=== PATIENT | female | born 1975 | race Caucasian/White ===

== ENCOUNTER 2016-05-02 18:37 | Emergency (ER) | payer OTHER, MEDICARE ==
[~2016-05-02] VITALS: Ht 152.4 cm; Wt 90.7 kg
[2016-05-02 18:37] VITALS: BP 154/109; PULSE 72; RESP 28; TEMP 97.9; O2SAT 99
--- NOTE | 2016-05-02 18:37 | NUR ---
BIB [facility] from [facility], Placed in room 03. Placed on surveillance system monitor, blood pressure machine and pulse oximeter. To gown for exam. Side rails up. Report given to ANAND Gracia.
[2016-05-02] MEDS ORDERED: ASPIRIN 325 MG TABLET PO ONE (19:15)
--- NOTE | 2016-05-02 19:20 | NUR ---
Pt BIB ambulance from [facility] with c/o 09/02 chestpain, non-radiating, with couhging. 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 A&Ox4, denies SOB, denies N/V/D. Skin intact. Will continue to monitor
--- NOTE | 2016-05-02 19:43 | NUR ---
at bedside examining pt
[2016-05-02 19:58] LABS: BASOPHILS # (AUTO) 0.1 K/uL (0.0-0.2); BASOPHILS % (AUTO) 0.5 % (0.0-2.0); EOSINOPHILS # (AUTO) 0.2 K/uL (0.0-0.4); HEMATOCRIT 39.2 % (36-48); HEMOGLOBIN 13.4 g/dL (12.0-16.0); LYMPHOCYTES # (AUTO) 2.4 K/uL (1.0-5.5); LYMPHOCYTES % (AUTO) 19.3 % (20.5-51.5); MEAN CORPUSCULAR HEMOGLOBIN 29 pg (27-31); MEAN CORPUSCULAR HGB CONC 34 % (32-36); MEAN CORPUSCULAR VOLUME 84 fL (79.0-98.0); MONOCYTES # (AUTO) 0.5 K/uL (0.0-1.0); MONOCYTES % (AUTO) 3.8 % (1.7-9.3); NEUTROPHILS # (AUTO) 9.3 K/uL (1.8-7.7); NEUTROPHILS % (AUTO) 74.4 % (40.0-70.0); PLATELET COUNT (AUTO) 343 K/uL (130-430); RED BLOOD CELL COUNT(AUTO) 4.67 MIL/uL (4.2-6.2); RED CELL DISTRIBUTION WIDTH 15.2 % (9.0-15.0); WHITE BLOOD COUNT (AUTO) 12.5 K/uL (4.8-10.8)
[2016-05-02 20:03] LABS: CALCIUM 8.5 mg/dL (8.4-11.0); CREATININE 0.36 mg/dL (0.55-1.30); POTASSIUM 3.7 mmol/L (3.5-5.1)
[2016-05-02 20:07] LABS: ALBUMIN 3.2 g/dL (3.4-4.8); TOTAL BILIRUBIN 0.3 mg/dL (0.0-1.0); TOTAL PROTEIN, SERUM 7.2 g/dL (6.4-8.3)
[2016-05-02] MEDS ORDERED: KETOROLAC TROMETHAMINE 30 MG VIAL IVP ONE (20:15)
[2016-05-02] MEDS ORDERED: HYDROcodone/ACETAMIN 5-325 MG TAB (NORCO/ VICODIN) PO ONE (20:15)
[2016-05-02 20:22] LABS: BILIRUBIN,URINE NEGATIVE (NEGATIVE); CLARITY/URINE CLEAR (CLEAR); COLOR,URINE YELLOW (YELLOW); GLUCOSE,URINE NEGATIVE (NEGATIVE); KETONES,URINE NEGATIVE (NEGATIVE); LEUKOCYTE ESTERASE ,URINE NEGATIVE (NEGATIVE); NITRITE, URINE NEGATIVE (NEGATIVE); PH,URINE 5.5 (5.0-8.0); PROTEIN URINE NEGATIVE (NEGATIVE); UROBILINOGEN,URINE 0.2 (0.2-1.0)
[2016-05-02 20:25] LABS: BLOOD, URINE TRACE (NEGATIVE)
[2016-05-02 20:30] LABS: BACTERIA,URINE FEW /HPF (None Seen); MUCUS,URINE 2+ /LPF (None Seen); RBC,URINE 0-3 /HPF (0-3); WBC,URINE 0-3 /HPF (0-3)
[2016-05-02] MEDS ORDERED: MULT-976 PO (21:07)
[2016-05-02] MEDS ORDERED: TRAZ-123 PO (21:07)
[2016-05-02] MEDS ORDERED: ALBU2.5V7 INH (21:07)
[2016-05-02] MEDS ORDERED: ASPI325T2 PO (21:07)
[2016-05-02] MEDS ORDERED: BACL10TA PO (21:07)
[2016-05-02] MEDS ORDERED: FAMO20TA8 PO (21:07)
[2016-05-02] MEDS ORDERED: MELA3TAB37 PO (21:07)
[2016-05-02] MEDS ORDERED: ACET325T53 PO (21:07)
[2016-05-02] MEDS ORDERED: METO25TA6 PO (21:07)
--- NOTE | 2016-05-02 21:07 | NUR ---
Medication reconciliation completed with information provided by facility record. Any prior medication reconciliation on file was reviewed and corrected.
--- NOTE | 2016-05-02 22:05 | NUR ---
Pt in bed, appeared comfortable, VSS. Will continue to monitor
--- NOTE | 2016-05-02 23:14 | NUR ---
Patient given written and verbal discharge instructions and verbalizes understanding. ER MD Emmanuel discussed with patient the results and treatment provided. Given copies of tests performed in ER. Patient in stable condition. ID arm band removed. IV catheter removed intact and dressing applied, no active bleeding. Rx of norco, motrin given. Patient educated on pain management and to follow up with PMD. Pain Scale 0/10 Opportunity for questions provided and answered. Pt transported back to facility by [facility] ambulance
[2016-05-02 23:16] VITALS: BP 103/73; PULSE 80; RESP 16; TEMP 98; O2SAT 98
== END 2016-05-02 23:16 | disposition home or self-care (01) ==
LOC: SED 18:37
DX: R07.89 Other chest pain (principal); K21.9 Gastro-esophageal reflux disease without esophagitis; R05 Cough; M79.602 Pain in left arm; Z88.1 Allergy status to other antibiotic agents
CPT/HCPCS: 36415; 71010; 80053; 81000; 81025; 82550; 83880; 84484; 85025; 96374; 99285; J1885; 93005

== ENCOUNTER 2017-11-20 19:31 | Emergency (ER) | payer OTHER, MEDICARE ==
[~2017-11-20] VITALS: Ht 167.6 cm; Wt 136.1 kg
[~2017-11-20 19:31] MED LIST: ACET325T53 PO; ALBU2.5V7 INH; ASPI-858 PO; BACL10TA PO; FAMO20TA8 PO; MELA3TAB PO; METO25TA6 PO; MULT-976 PO; TRAZ-123 PO
[2017-11-20 19:38] VITALS: BP_SYST 128
[2017-11-20] MEDS ORDERED: ACETAMINOPHEN 500 MG TABLET PO ONE (20:00)
[2017-11-20] MEDS ORDERED: DOCU-144 PO (20:29)
[2017-11-20] MEDS ORDERED: CRAN450C PO (20:30)
[2017-11-20] MEDS ORDERED: NA P133E41 RC (20:31)
[2017-11-20] MEDS ORDERED: IPRA3AMP9 INH (20:33)
[2017-11-20 22:20] VITALS: BP_SYST 121
== END 2017-11-20 22:20 | disposition home or self-care (01) ==
LOC: SED 19:31
DX: S00.03XA Contusion of scalp, initial encounter (principal); J44.9 Chronic obstructive pulmonary disease, unspecified; K21.9 Gastro-esophageal reflux disease without esophagitis; M62.50 Muscle wasting and atrophy, not elsewhere classified, unspecified site; Z79.899 Other long term (current) drug therapy; Z88.1 Allergy status to other antibiotic agents; W07.XXXA Fall from chair, initial encounter; Y93.89 Activity, other specified; Y92.89 Other specified places as the place of occurrence of the external cause; Y99.8 Other external cause status
CPT/HCPCS: 70450-TC; 99284

== ENCOUNTER 2018-12-18 23:50 | Inpatient (IN) | payer OTHER, BC ==
[~2018-12-18] VITALS: Ht 154.9 cm; Wt 121.6 kg
[2018-12-18 23:50] VITALS: BP_SYST 161
[~2018-12-18 23:50] MED LIST changes: -ALBU2.5V7 INH; +CRAN450C PO; +DOCU-144 PO; -MELA3TAB PO; +MELA3TAB64 PO; -TRAZ-123 PO; +TRAZ-250 PO
[2018-12-19] VITALS (24 sets, daily range): BP systolic 118–170
--- NOTE | 2018-12-19 | NUR ---
Patient to ER bed 2 to gown for evaluation. Side rails up.
[2018-12-19] MEDS ORDERED: NACL 0.9% 2,500 ML IV ONE (00:02)
--- NOTE | 2018-12-19 00:05 | NUR ---
ER at bedside examining patient.
--- NOTE | 2018-12-19 00:12 | NUR ---
xray at bedside
[2018-12-19] MEDS ORDERED: MEROPENEM 1 GM IVPB PREMIX 50 ML IV ONE (00:15)
[2018-12-19] MEDS ORDERED: VANCOMYCIN HCL 1,000 MG in NS 250 ML IV ONE (00:15)
[2018-12-19] MEDS ORDERED: POTA10TA15 PO (00:16)
[2018-12-19] MEDS ORDERED: LEVO500T89 PO (00:17)
[2018-12-19] MEDS ORDERED: LEVA1.2527 NEB (00:19)
--- NOTE | 2018-12-19 00:22 | NUR ---
Medication reconciliation completed with information provided by [facility]. Any prior medication reconciliation on file was reviewed and corrected.
--- NOTE | 2018-12-19 00:35 | NUR ---
Pt is QuadP BIBA from [facility] to ED C/O shortness of breath. Patient states that her symptoms started about 9:00 o'clock this evening, and feel and sound congested. No other injuries and or complaints noted. VSS, with mild tachycardia and O2 sat ranging from 90 - 95% NRM 15L No acute s/s of acute distress. Resting on gurney rails up
[2018-12-19] MEDS ORDERED: VANCOMYCIN HCL 1000 MG/VIAL IV ONE ×2 (00:38→04:58)
[2018-12-19 00:39] LABS: BASOPHILS # (AUTO) 0.1 K/uL (0.0-0.2); BASOPHILS % (AUTO) 0.6 % (0.0-2.0); EOSINOPHILS # (AUTO) 0.1 K/uL (0.0-0.4); EOSINOPHILS % (AUTO) 0.9 % (0.0-4.0); HEMOGLOBIN 13.9 g/dL (12.0-16.0); LYMPHOCYTES # (AUTO) 1.7 K/uL (1.0-5.5); LYMPHOCYTES % (AUTO) 10.8 % (20.5-51.5); MEAN CORPUSCULAR HEMOGLOBIN 28 pg (27-31); MEAN CORPUSCULAR HGB CONC 33 % (32-36); MEAN CORPUSCULAR VOLUME 83 fL (79.0-98.0); MONOCYTES # (AUTO) 0.7 K/uL (0.0-1.0); MONOCYTES % (AUTO) 4.7 % (1.7-9.3); NEUTROPHILS # (AUTO) 12.7 K/uL (1.8-7.7); PLATELET COUNT (AUTO) 395 K/uL (130-430); RED BLOOD CELL COUNT(AUTO) 5.04 MIL/uL (4.2-6.2); RED CELL DISTRIBUTION WIDTH 17.7 % (9.0-15.0); WHITE BLOOD COUNT (AUTO) 15.3 K/uL (4.8-10.8)
[2018-12-19 00:51] LABS: CALCIUM 8.6 mg/dL (8.4-11.0); CREATININE 0.51 mg/dL (0.55-1.30); POTASSIUM 3.9 mmol/L (3.5-5.1)
[2018-12-19 00:56] LABS: TOTAL BILIRUBIN 0.2 mg/dL (0.0-1.0)
[2018-12-19 01:18] LABS: BILIRUBIN,URINE NEGATIVE (NEGATIVE); BLOOD, URINE 1+ (NEGATIVE); CLARITY/URINE CLEAR (CLEAR); COLOR,URINE YELLOW (YELLOW); GLUCOSE,URINE NEGATIVE (NEGATIVE); KETONES,URINE NEGATIVE (NEGATIVE); LEUKOCYTE ESTERASE ,URINE NEGATIVE (NEGATIVE); NITRITE, URINE NEGATIVE (NEGATIVE); PH,URINE 6.5 (5.0-8.0); PROTEIN URINE NEGATIVE (NEGATIVE); UROBILINOGEN,URINE 0.2 (0.2-1.0)
[2018-12-19 01:22] LABS: BACTERIA,URINE FEW /HPF (None Seen); WBC,URINE 0-3 /HPF (0-3)
[2018-12-19] MEDS ORDERED: PIPERACILLIN/TAZO 3.375 GM in NS 50 ML IV SCH (01:45)
--- NOTE | 2018-12-19 02:15 | NUR ---
Patient will be admitted to care of Dr. Thompson. Admitted to ICU unit. Will go to room icu 4. Belongings list completed. Summary report printed. Report will be given at bedside.
--- NOTE | 2018-12-19 02:35 | NUR ---
Patient will be admitted to care of Dr. Thompson. Admitted to ICU unit. Will go to room 4. Belongings list completed. Summary report printed. Report will be given at bedside.
--- NOTE | 2018-12-19 02:35 | NUR ---
Transfer to ICU via ACLS protocol. Licensed nurse present. IV present no signs or symptoms of infiltration.
--- NOTE | 2018-12-19 02:40 | NUR ---
Admission Assessment Pt in bed AAO, but confused at times. Pt ST on the monitor. Non-rebreather mask on @15L. Pt saturating in the high 90s. No s/s of distress noted. Pt has IV infusing fluids, site C/D/I. No c/o of pain at this time. Bed locked in lowest position, call light in reach, and safety precautions in place. Will continue to monitor.
[2018-12-19] MEDS ORDERED: PIPERACILLIN/TAZOBACTAM 3.375 GM/VIAL (ZOSYN) IV ONE (02:52)
[2018-12-19] MEDS ORDERED: KCL 20 mEq in D5/0.45NS 1000mL 1,000 ML IV ONE (02:55)
[2018-12-19] MEDS ORDERED: VANCOMYCIN HCL 750 MG in NS 250 ML IV SCH (03:30)
[2018-12-19] MEDS: LevALBUTEROL HCL 1.25 MG/0.5 ML *CONC.* VIAL.NEB (XOPENEX CONC.) INH SCH ×4 (03:50→20:05)
--- NOTE | 2018-12-19 04:05 | NUR ---
Pt switched to Venti mask 50%.
[2018-12-19] MEDS: KCL 20 mEq in D5/0.45NS 1000mL 1,000 ML IV SCH ×2 (04:23→16:19)
[2018-12-19 05:20] LABS: BASOPHILS # (AUTO) 0.2 K/uL (0.0-0.2); BASOPHILS % (AUTO) 0.8 % (0.0-2.0); EOSINOPHILS # (AUTO) 0.2 K/uL (0.0-0.4); EOSINOPHILS % (AUTO) 0.9 % (0.0-4.0); HEMATOCRIT 40.2 % (36-48); HEMOGLOBIN 13.2 g/dL (12.0-16.0); LYMPHOCYTES # (AUTO) 2.2 K/uL (1.0-5.5); LYMPHOCYTES % (AUTO) 12.3 % (20.5-51.5); MEAN CORPUSCULAR HEMOGLOBIN 27 pg (27-31); MEAN CORPUSCULAR HGB CONC 33 % (32-36); MEAN CORPUSCULAR VOLUME 83 fL (79.0-98.0); MONOCYTES # (AUTO) 0.8 K/uL (0.0-1.0); MONOCYTES % (AUTO) 4.3 % (1.7-9.3); NEUTROPHILS # (AUTO) 14.9 K/uL (1.8-7.7); NEUTROPHILS % (AUTO) 81.7 % (40.0-70.0); PLATELET COUNT (AUTO) 340 K/uL (130-430); RED BLOOD CELL COUNT(AUTO) 4.84 MIL/uL (4.2-6.2); RED CELL DISTRIBUTION WIDTH 17.2 % (9.0-15.0); WHITE BLOOD COUNT (AUTO) 18.2 K/uL (4.8-10.8)
[2018-12-19 05:40] LABS: ALBUMIN 2.6 g/dL (3.4-4.8); CALCIUM 7.9 mg/dL (8.4-11.0); CREATININE 0.3 mg/dL (0.55-1.30); POTASSIUM 3.9 mmol/L (3.5-5.1); TOTAL BILIRUBIN 0.3 mg/dL (0.0-1.0)
--- NOTE | 2018-12-19 06:21 | NUR ---
Closing Note Pt in bed asleep. AAO but remains confused at times. SR/ST shown on monitor. Pt on Venti mask AT 50%. Pt has IV site in place IVF infusing. Site is C/D/I. Pt being turned Q2H. Bed locked in lowest position, call light in reach, and safety precautions in place. Will endorse to oncoming RN.
--- NOTE | 2018-12-19 06:40 | NUR ---
DR PARSONS EXCHANGE NOTIFIED OF CONSULT.TALKED TO OMA
[2018-12-19] MEDS: methylPREDNISolone SOD SUCC/PF 62.5 MG/ML VIAL IVP SCH ×4 (06:59→23:32)
[2018-12-19] MEDS: PIPERACILLIN/TAZO 3.375 GM in NS 50 ML IV SCH ×4 (06:59→23:33)
--- NOTE | 2018-12-19 07:19 | NUR ---
Endorsement Report given to oncoming RN at bedside via SBAR approach.
--- NOTE | 2018-12-19 07:23 | NUR ---
Shift Report Received shift report from night RN
--- NOTE | 2018-12-19 07:30 | NUR ---
AM Assessment Pt on Venturi Mask running at 50%. Saturation at 100%. Sinus Tach. Pt verbalized alert to person, place, time. Refused to visitation from father. Bed locked and in lowest position. LFA 20 gauge no longer patent.
--- NOTE | 2018-12-19 08:20 | NUR ---
Dr Thompson called and ordered PICC line for Pt.
[2018-12-19] MEDS ORDERED: FLU VACC QS2019-20 36MOS UP/PF 60 MCG/0.5 ML SYRINGE I.M. PRN (09:00)
--- NOTE | 2018-12-19 09:00 | NUR ---
ZAVALETA CATH: #16 FR Zavaleta catheter with 10 cc bulb inserted with use of sterile technique. Bulb inflated with 10 cc sterile water. Immediate return clear urine noted. Bedside drainage bag placed below level of bladder. Pt tolerated procedure well.
--- NOTE | 2018-12-19 09:20 | NUR ---
Performed perineal care. Linens changed. PT turned on right side will pillows.
--- NOTE | 2018-12-19 10:00 | NUR ---
PICC line Authorization given over telephone by Jhonny (Father). Janett MICHEL second nurse verified.
--- NOTE | 2018-12-19 12:30 | NUR ---
PICC line RN at bed performing procedure.
[2018-12-19] MEDS ORDERED: ENOXAPARIN SODIUM 40 MG/0.4 ML SYRINGE SUBCUT ONE (13:45)
--- NOTE | 2018-12-19 15:00 | NUR ---
Called father to get telephone consent for IV contrast use. Addendum: 12/19/18 at 1630 by Ny Cheema RN Left message to call facility back.
[2018-12-19] MEDS: VANCOMYCIN HCL 1,500 MG in NS 250 ML IV SCH (16:19)
--- NOTE | 2018-12-19 16:36 | NUR ---
Received telephone consent with second nurse present from father Jhonny to use IV contrast. Also informed Jhonny that patient is requesting eyeglasses lemon picker from [facility].
--- NOTE | 2018-12-19 16:52 | NUR ---
Informed radiology that consent form for IV contrast completed.
--- NOTE | 2018-12-19 17:50 | NUR ---
Patient off unit transferred to radiology for CT scan IV contrast with tele monitor and portable 02 2 liters via NC.
[2018-12-19] MEDS ORDERED: IOHEXOL 100 ML IV ONE (17:52)
--- NOTE | 2018-12-19 18:20 | NUR ---
Patient returned from radiology, tolerated procedure well.
--- NOTE | 2018-12-19 19:12 | NUR ---
Endorsed patient and report to oncoming nurse. In no acute distress. Awake and alert watching TV.
--- NOTE | 2018-12-19 19:30 | NUR ---
PM ASSESSMENT REPORT RECEIVED FROM CHINO MICHEL. PT RECEIVED IN BED WITH EYES OPEN, AAOX3, RESPONDING TO VERBAL STIMULATION. VSS, NO S/S OF ACUTE DISTRESS NOTED. PT ON 2L NC. SR ON MONITOR. MOUNA PICC IN PLACE INFUSING D5 1/2 NS + 20 MEQ KCL @ 75 CC/HR. ZAVALETA CATH IN PLACE DRAINING YELLOW URINE TO GRAVITY. PT DENIES ANY PAIN OR DISCOMFORT AT THIS TIME. HOB ELEVATED, BED IN LOWEST POSITION, CALL LIGHT IN REACH. WILL CONTINUE TO MONITOR PT.
[2018-12-19] MEDS: FAMOTIDINE PF 20 MG/2 ML VIAL IVP SCH (20:02)
[2018-12-20] VITALS (24 sets, daily range): BP systolic 110–189
--- NOTE | 2018-12-20 | NUR ---
RN ROUNDS PT RESTING COMFORTABLY IN BED WITH EYES CLOSED. BREATHING IS EVEN AND UNLABORED ON 2L NC. VSS, NO S/S OF ACUTE DISTRESS NOTED. WILL CONTINUE TO MONITOR PT.
[2018-12-20] MEDS: LevALBUTEROL HCL 1.25 MG/0.5 ML *CONC.* VIAL.NEB (XOPENEX CONC.) INH SCH ×4 (01:10→19:45)
[2018-12-20] MEDS: VANCOMYCIN HCL 1,500 MG in NS 250 ML IV SCH (03:41)
[2018-12-20] MEDS: methylPREDNISolone SOD SUCC/PF 62.5 MG/ML VIAL IVP SCH ×4 (05:34→23:23)
[2018-12-20] MEDS: PIPERACILLIN/TAZO 3.375 GM in NS 50 ML IV SCH ×4 (05:34→23:23)
[2018-12-20 06:47] LABS: BASOPHILS % (AUTO) 0.1 % (0.0-2.0); HEMATOCRIT 37.6 % (36-48); HEMOGLOBIN 12.3 g/dL (12.0-16.0); LYMPHOCYTES # (AUTO) 1.1 K/uL (1.0-5.5); LYMPHOCYTES % (AUTO) 9.5 % (20.5-51.5); MEAN CORPUSCULAR HEMOGLOBIN 27 pg (27-31); MEAN CORPUSCULAR HGB CONC 33 % (32-36); MEAN CORPUSCULAR VOLUME 82 fL (79.0-98.0); MONOCYTES # (AUTO) 0.3 K/uL (0.0-1.0); MONOCYTES % (AUTO) 2.6 % (1.7-9.3); NEUTROPHILS # (AUTO) 10.5 K/uL (1.8-7.7); NEUTROPHILS % (AUTO) 87.8 % (40.0-70.0); PLATELET COUNT (AUTO) 329 K/uL (130-430); RED BLOOD CELL COUNT(AUTO) 4.56 MIL/uL (4.2-6.2)
[2018-12-20 06:52] LABS: CALCIUM 7.8 mg/dL (8.4-11.0); CREATININE 0.34 mg/dL (0.55-1.30)
--- NOTE | 2018-12-20 07:15 | NUR ---
Received patient and report from NOC shift. In no acute distress.
[2018-12-20 07:24] LABS: PROTHROMBIN TIME 10.4 SECS (9.5-12.5)
--- NOTE | 2018-12-20 07:30 | NUR ---
ENDORSEMENT BEDSIDE REPORT GIVEN TO AM RN USING SBAR APPROACH.
[2018-12-20] MEDS: ENOXAPARIN SODIUM 40 MG/0.4 ML SYRINGE SUBCUT SCH (08:19)
[2018-12-20] MEDS: FAMOTIDINE PF 20 MG/2 ML VIAL IVP SCH ×2 (08:19→21:58)
--- NOTE | 2018-12-20 11:00 | NUR ---
MD Car at bedside.
--- NOTE | 2018-12-20 11:30 | NUR ---
Performed CHG bath and changed gown. Performed oral care.
--- NOTE | 2018-12-20 12:22 | NUR ---
Nutrition Update Alan Scale 13 noted. Pt admitted for UTI, pneumonia. Diet: NPO BMI: 43.5 kg/m2 RD to follow per nutrition care standards.
[2018-12-20] MEDS: AZITHROMYCIN 500 MG in NS 250 ML IV SCH (14:26)
[2018-12-20] MEDS: KCL 20 mEq in D5/0.45NS 1000mL 1,000 ML IV SCH (14:32)
--- NOTE | 2018-12-20 16:00 | NUR ---
Speech therapist at bedside.
--- NOTE | 2018-12-20 16:02 | NUR ---
Dietitian Recommendations * Recommend continuing NPO order * Advance diet as per ST wyatt brizuela recommendations LP, RD Please refer to Nutrition Assessment for details. Addendum: 12/20/18 at [address] Amended: Links added.
[2018-12-20] MEDS: FLUCONAZOLE 100 mg/ NS 50 ML IV SCH (16:37)
--- NOTE | 2018-12-20 16:45 | NUR ---
S.T. SWALLOW EVAL SWALLOW EVAL COMPLETED. PT PRESENTS W/ GENERALLY FUNCTIONAL OROPHARYNGEAL SWALLOW W/ NO S/S OF ASPIRATION. REC: MECH SOFT CHOPPED DIET. THIN LIQUIDS OK. NURSING TO MONITOR DURING MEALS. NURSE EDIE NOTIFIED. G8996 CI G8997 CI G8998 CI NOMS LEVEL 6
--- NOTE | 2018-12-20 19:27 | NUR ---
Endorsed patient and report to NOC shift nurse. In no acute distress.
--- NOTE | 2018-12-20 20:13 | NUR ---
URINE COLLECTED & SENT TO LAB .
--- NOTE | 2018-12-20 20:14 | NUR ---
PATIENT IS AWAKE ALERT VERBALLY RESPONSIVE HOB IS ELEVATED ON NASAL CANNULA 2 LITER PER MINUTE SKIN DRY WARM BP 135 / 82 HR 86 BPM CHEST MOVEMENT SYMMETRICAL .
--- NOTE | 2018-12-20 22:00 | NUR ---
ZAVALETA CATHETER FOR URINE PATENT Free Flow of yellow clear urine noted to BSDB , patient awake alert .
--- NOTE | 2018-12-20 22:13 | NUR ---
Reposition & Turning off loading with pillows comfort measures implemented no activity intolerance noted Respirations Regular also unlabored .
[2018-12-21] VITALS (17 sets, daily range): BP systolic 123–175
[2018-12-21] MEDS: LevALBUTEROL HCL 1.25 MG/0.5 ML *CONC.* VIAL.NEB (XOPENEX CONC.) INH SCH ×4 (00:55→19:40)
--- NOTE | 2018-12-21 02:37 | NUR ---
STOOL NOTED Bed Bath given debbie area kept clean patient awake alert position change on schedule tolerating .
--- NOTE | 2018-12-21 05:02 | NUR ---
SPUTUM COLLECTION OBTAINED FROM NASAL SUCTION / ASPIRATION AND SENT TO LAB .
[2018-12-21] MEDS: KCL 20 mEq in D5/0.45NS 1000mL 1,000 ML IV SCH ×2 (05:23→13:16)
[2018-12-21] MEDS: PIPERACILLIN/TAZO 3.375 GM in NS 50 ML IV SCH ×3 (05:23→18:17)
[2018-12-21] MEDS: methylPREDNISolone SOD SUCC/PF 62.5 MG/ML VIAL IVP SCH (05:23)
[2018-12-21 07:10] LABS: BASOPHILS % (AUTO) 0.1 % (0.0-2.0); HEMATOCRIT 37.1 % (36-48); HEMOGLOBIN 12.1 g/dL (12.0-16.0); LYMPHOCYTES # (AUTO) 0.8 K/uL (1.0-5.5); LYMPHOCYTES % (AUTO) 6.5 % (20.5-51.5); MEAN CORPUSCULAR HEMOGLOBIN 27 pg (27-31); MEAN CORPUSCULAR HGB CONC 33 % (32-36); MEAN CORPUSCULAR VOLUME 83 fL (79.0-98.0); MONOCYTES # (AUTO) 0.5 K/uL (0.0-1.0); MONOCYTES % (AUTO) 4.2 % (1.7-9.3); NEUTROPHILS # (AUTO) 10.9 K/uL (1.8-7.7); NEUTROPHILS % (AUTO) 89.2 % (40.0-70.0); PLATELET COUNT (AUTO) 351 K/uL (130-430); RED BLOOD CELL COUNT(AUTO) 4.48 MIL/uL (4.2-6.2); RED CELL DISTRIBUTION WIDTH 17.5 % (9.0-15.0); WHITE BLOOD COUNT (AUTO) 12.2 K/uL (4.8-10.8)
[2018-12-21 07:24] LABS: CALCIUM 8.3 mg/dL (8.4-11.0); CREATININE 0.58 mg/dL (0.55-1.30); POTASSIUM 3.1 mmol/L (3.5-5.1)
--- NOTE | 2018-12-21 07:30 | NUR ---
PT RECEIVED IN BED WITH EYES OPEN, A/OX3. VSS, NO S/S OF ACUTE DISTRESS NOTED. ON ROOM AIR, SR ON MONITOR. RAC 20G TO SL. LUNG SOUNDS DIMINISHED ACROSS THE LUNG CHIN. PATIENT IS FLACCID ON ALL EXTREMITIES, PT DENIES ANY PAIN OR DISCOMFORT AT THIS TIME. CALL LIGHT IN PLACE, BED LOCKED AT IN LOWEST POSITION WITH BED ALARM ON. WILL CONTINUE TO MONITOR PT.
[2018-12-21] MEDS: AZITHROMYCIN 500 MG in NS 250 ML IV SCH (08:40)
[2018-12-21] MEDS: FAMOTIDINE PF 20 MG/2 ML VIAL IVP SCH ×2 (08:40→20:05)
[2018-12-21] MEDS: ENOXAPARIN SODIUM 40 MG/0.4 ML SYRINGE SUBCUT SCH (08:41)
--- NOTE | 2018-12-21 09:40 | NUR ---
FAMILY AT BEDSIDE. POC IS DISCUSSED.
--- NOTE | 2018-12-21 09:50 | NUR ---
Wound Evaluation: Late note for 12/21/18 at 0950 secondary to patient care. Wound Consult ordered for Low Alan Score. Patient evaluated for a low Alan score of 18. Patient was awake, alert, oriented x 2 and received in a Cottonwood Bed with an IsoFlex MARIA L mattress, with low air-loss therapy initiated. Patient needs to be turned in bed. Skin is intact. Recommend reposition patient side to side only every 2 hours with pillow support. Elevate, off-load and float bilateral heels with pillows. Offload pressure areas with pillows for pressure re-distribution. Perform skin care and monitor skin integrity Q shift. Use moisture barrier cream on moisture susceptible areas QID and PRN for soiling. Place patient on a low air-loss mattress. Skin assessment: 1. Sacra area: Scar tissue from a wound of prior unknown etiology, present on admission. 2. Buttocks: Scar tissue from a wound of prior unknown etiology, present on admission. Recommend: Cleanse involved areas with mild soap and water. Pat dry. Apply moisture barrier to involved areas. Perform site care qid, and prn for soiling. Reposition patient side to side only every 2 hours with pillow support.
[2018-12-21] MEDS ORDERED: POTASSIUM CHLORIDE 40 MEQ in 0.45% NS 250 ML IV ONE (10:30)
[2018-12-21] MEDS ORDERED: POTASSIUM CHLORIDE 40 MEQ in NS 250 ML IV ONE (10:55)
--- NOTE | 2018-12-21 11:20 | NUR ---
PATIENT IS RESTING, NO SIGNS OF DISTRESS NOTED.
[2018-12-21] MEDS: FLUCONAZOLE 100 mg/ NS 50 ML IV SCH (12:05)
--- NOTE | 2018-12-21 13:08 | NUR ---
Night Clerk Auditor: meet with pt. in ICU. HANDLE TURNER met with pt. in ICU. She was having a hard time communication with and responding to HANDLE TURNER's questions. She was willing to participate in this interview, and answered to the best of her ability. When asked pt. stated she had lived in [facility] all her life.HANDLE TURNER asked pt. where she lived prior to [facility]. Pt. stated she did not know. She also confirmed her father was her emergency contact, but did not remember the last time she saw or spoke to him. HANDLE TURNER asked pt. if she had a PCP. Pt stated she did not know of one. HANDLE TURNER asked pt. if it was ok if she contacted her father to gather more info. Pt. stated it was ok. HANDLE TURNER asked pt. if she knew what she was at the hospital. Pt. stated she did not know. HANDLE TURNER told her at any time, she can ask her Rn., today it was brodie Gregg. her health care, POC and prognosis. HANDLE TURNER asked pt. if she wanted HANDLE TURNER to help her write down some questions for Dr. Thompson. Pt. stated no, it was ok. HANDLE TURNER shared with pt. what the census stated, pt. had an UTI and pneumonia. HANDLE TURNER asked pt. if she has ever felt depressed. Pt. stated she had not. HANDLE TURNER asked pt. she has ever felt like hurting herself. Pt. denied ever having these feelings. HANDLE TURNER asked pt. if she had any questions. Pt. stated she did not. HANDLE TURNER gave pt. her card and told pt. she can have the Rn. call if pt. had any questions. HANDLE TURNER will remain available as needed. HANDLE TURNER called emergency contact, pts.' dad, Jhonnydarrell PhillipsLange who stated pt. has a hard time talking due to her disease, ALS. She was Dx. her senior year in high school. Father stated pt. has lived in [facility] since about 2009. he lives in [place] and had just visited his daughter about an hour ago. He added pt. is very forgetful. HANDLE TURNER thanked him for all his help. HANDLE TURNER will remain available as needed.
--- NOTE | 2018-12-21 15:20 | NUR ---
Patient awake and resting in bed, denies any SOB or pain. No signs or symptoms of acute distress noted. Bed locked in lowest position, bed alarm on, and call light within reach. Fall and safety precautions in place.
--- NOTE | 2018-12-21 15:53 | NUR ---
Dr. Thompson at bedside examining patient. New orders received.
--- NOTE | 2018-12-21 15:53 | NUR ---
Telemetry Status Per Dr. Thompson, patient is stable to transfer to telemetry unit. Patient will be monitored in ICU under telemetry status until hospital bed is available.
--- NOTE | 2018-12-21 17:00 | NUR ---
PATIENT IS TRANSFERRED TO TELE FLOOR. SR ON MONITOR. V/S STABLE.
--- NOTE | 2018-12-21 18:30 | NUR ---
PATIENT IS FED DINNER WITH RN'S SUPERVISION.
--- NOTE | 2018-12-21 19:30 | NUR ---
PM ASSESSMENT REPORT RECEIVED FROM AM RN. PT RECEIVED IN BED WITH EYES OPEN, AAOX2-3 AND ABLE TO VERBALIZE NEEDS. VSS, NO S/S OF ACUTE DISTRESS NOTED. PT ON RA. SR ON MONITOR. MOUNA PICC IN PLACE INFUSING D5 1/2 NS + 20 MEQ KCL @ 75 CC/HR. ZAVALETA CATH IN PLACE DRAINING YELLOW URINE TO GRAVITY. PT DENIES ANY PAIN OR DISCOMFORT AT THIS TIME. HOB ELEVATED, BED IN LOWEST POSITION, CALL LIGHT IN REACH. WILL CONTINUE TO MONITOR PT.
--- NOTE | 2018-12-22 | NUR ---
RN ROUNDS PT RESTING COMFORTABLY IN BED WITH EYES OPEN. PT DENIES ANY PAIN OR DISCOMFORT AT THIS TIME. NO NEEDS VERBALIZED. VSS, NO S/S OF ACUTE DISTRESS NOTED. WILL CONTINUE TO MONITOR PT.
[2018-12-22] MEDS: PIPERACILLIN/TAZO 3.375 GM in NS 50 ML IV SCH ×3 (00:04→10:59)
[2018-12-22] MEDS: LevALBUTEROL HCL 1.25 MG/0.5 ML *CONC.* VIAL.NEB (XOPENEX CONC.) INH SCH ×5 (01:15→19:56)
[2018-12-22] MEDS: KCL 20 mEq in D5/0.45NS 1000mL 1,000 ML IV SCH (03:29)
--- NOTE | 2018-12-22 04:00 | NUR ---
RN ROUNDS PT CONTINUES TO REST COMFORTABLY IN BED WITH EYES OPEN. PT DENIES ANY PAIN OR DISCOMFORT AT THIS TIME. BREATHING IS EVEN AND UNLABORED ON RA. WILL CONTINUE TO MONITOR PT.
[2018-12-22 07:01] LABS: BASOPHILS % (AUTO) 0.1 % (0.0-2.0); HEMATOCRIT 35.4 % (36-48); HEMOGLOBIN 11.9 g/dL (12.0-16.0); LYMPHOCYTES % (AUTO) 20.4 % (20.5-51.5); MEAN CORPUSCULAR HEMOGLOBIN 28 pg (27-31); MEAN CORPUSCULAR HGB CONC 34 % (32-36); MEAN CORPUSCULAR VOLUME 83 fL (79.0-98.0); MONOCYTES # (AUTO) 1.1 K/uL (0.0-1.0); MONOCYTES % (AUTO) 11.2 % (1.7-9.3); NEUTROPHILS # (AUTO) 6.8 K/uL (1.8-7.7); NEUTROPHILS % (AUTO) 68.3 % (40.0-70.0); PLATELET COUNT (AUTO) 325 K/uL (130-430); RED BLOOD CELL COUNT(AUTO) 4.28 MIL/uL (4.2-6.2); RED CELL DISTRIBUTION WIDTH 17.5 % (9.0-15.0)
[2018-12-22 07:07] LABS: ALBUMIN 2.5 g/dL (3.4-4.8); CALCIUM 8.1 mg/dL (8.4-11.0); CREATININE 0.42 mg/dL (0.55-1.30); POTASSIUM 3.3 mmol/L (3.5-5.1); TOTAL BILIRUBIN 0.3 mg/dL (0.0-1.0)
--- NOTE | 2018-12-22 07:20 | NUR ---
ENDORSEMENT BEDSIDE REPORT GIVEN TO AM RN USING SBAR APPROACH. NO S/S OF ACUTE DISTRESS NOTED. ALL PT NEEDS MET.
--- NOTE | 2018-12-22 07:45 | NUR ---
AM ROUNDS: Awake, able to make needs know. Noted with shallow non productive cough, unable to expectorate phlegm. On room air, denies shortness of breath with rhonchi/crackles on all lobes. Right PICC line with two ports, both flushes well and with blood return. IVF of D5/12NS + KCL 20meq at 50 cc/hr. Park cath with yellow urine output, no sediments noted. Head of the bed elevated at 35 degrees, call ligh within reach.
[2018-12-22 07:57] VITALS: BP_SYST 150
[2018-12-22 08:39] VITALS: BP_SYST 150
[2018-12-22] MEDS: FAMOTIDINE PF 20 MG/2 ML VIAL IVP SCH ×2 (08:57→21:53)
[2018-12-22] MEDS: AZITHROMYCIN 500 MG in NS 250 ML IV SCH (08:58)
[2018-12-22] MEDS: ENOXAPARIN SODIUM 40 MG/0.4 ML SYRINGE SUBCUT SCH (08:59)
--- NOTE | 2018-12-22 11:01 | NUR ---
Rounds: Patient is asleep. No distress noted.
[2018-12-22 11:42] VITALS: BP_SYST 142
[2018-12-22] MEDS ORDERED: POTASSIUM CHLORIDE 40 MEQ in NS 250 ML IV ONE (12:00)
[2018-12-22] MEDS: FLUCONAZOLE 100 mg/ NS 50 ML IV SCH (12:11)
--- NOTE | 2018-12-22 14:00 | NUR ---
Rounds: Patient is asleep. No signs of respiratory distress noted.
[2018-12-22] MEDS: ACETYLCYSTEINE 10% 4 ML VIAL (RT) INH SCH ×2 (15:30→19:57)
[2018-12-22 15:38] VITALS: BP_SYST 143
--- NOTE | 2018-12-22 17:16 | NUR ---
Nutrition F/U Admitting Diagnosis UTI, pneumonia RD reviewed pts current EMR including diet Hx, physicians notes, nursing notes, pertinent labs/meds, procedures, care trends, and care activity. Medical History Comment: PMH: ALS, bedbound, functional quadriplegia, GERD, dysphagia, obesity, obesity, HTN, COPD per physician notes Since admission, Hypoxia, respiratory failure, and acute/complex pneumonia per physicians notes. Subjective Information Pt was seen resting in bed during time of visit. Pt reported no N/V and last BM about a week ago. Bed scale wt 238.8#. Per speech therapist note on 12/20, recommend mechanical soft chopped diet. RN reported pt is coughing a lot, it is intervening with PO intake. Average PO intake 71% x6 meals. Alan scale improved to 16, posterior sacrum scar noted per EMR on 12/21. Current Diet Order/Nutrition Support: Mechanical soft, finely chopped diet x2 days NEW Pertinent Medications Pepcid, piperacillin/tazobactum Pertinent Labs BG 217 H, WBC 10 WNL (improved) NEW: K 3.3 L, BUN 25 H, Alb 2.5 L Estimated Energy Expenditure (kcals/day) 7627-7852 kcal/day (30-35 kcal/kg Adj IBW for acute state) Estimated Protein Required (g/day) *ongoing 66-79 gm/day (1-1.2 gm/kg Adj IBW for acute state) Estimated Fluid Required (l/day) 3.7 L/day (30 ml/kg CBW for maintenance) Problem/Etiology/Signs/Symptoms Inadequate nutritional intakes related to possible difficulty swallowing associated w/ advancing Dz as evidenced by Hx of ALS, NPO status, and pending swallow evaluation. (*ongoing) Expected Outcomes/Goals - Monitor advancement of diet, appetite, and PO intakes w/ goal of pt meeting at least 85% of estimated nutritional needs, labs trending WNL, normal GI function, and skin integrity/wt maintenance Dietitian Recommendations * Recommend continuing mechanical soft, finely chopped diet. * Encourage PO intake Follow Up Moderate Risk: F/U in 3-5 days Signed: 12/22/18 at 1717 by Angelica PALOMO <Co-Signature Required> Co-Signed: 12/22/18 at [address]
--- NOTE | 2018-12-22 17:19 | NUR ---
Dietitian Recommendations * Recommend continuing mechanical soft, finely chopped diet. * Encourage PO intake LP, RD Please refer to Nutrition F/U for details. Signed: 12/22/18 at 1719 by Angelica PALOMO <Co-Signature Required> Co-Signed: 12/22/18 at [address]
--- NOTE | 2018-12-22 18:07 | NUR ---
End of shift: Family requested patient to be back on oxygen at 2 li/min. O2 sat is 99%. Needs attended.No change in assessment.
--- NOTE | 2018-12-22 19:30 | NUR ---
OPENING NOTES RECEIVED REPORT. PATIENT SLEEPING AT THIS TIME. NO SIGNS OF DISTRESS NOTED. BREATHING EVEN AND UNLABORED ON 2 L NC. PICC LINE IN PLACE INFUSING FLUIDS. RHONCHI HEARD. WILL SUCTION PATIENT. ZAVALETA CATHETER IN PLACE. NO NEEDS AT THIS TIME. CALL LIGHT WITH THE PATIENT. SAFETY PRECAUTIONS IN PLACE.
[2018-12-22 20:00] VITALS: BP_SYST 124
--- NOTE | 2018-12-22 20:40 | NUR ---
SUCTION PATIENT WAS SUCTIONED BY RT. SPUTUM CULTURE COLLECTED. PATIENT TOLERATED WELL.
[2018-12-22] MEDS: DOXYCYCLINE HYCLATE 100 MG CAPSULE PO SCH (21:52)
--- NOTE | 2018-12-22 22:00 | NUR ---
MEDICATIONS GIVEN. EDUCATED THE ACTION AND SIDE EFFECTS OF MEDICATIONS. PATIENT VERBALIZED UNDERSTANDING AND TOLERATED WELL. NO SIGNS OF ALLERGIC REACTION NOTED. NO OTHER NEEDS. CALL LIGHT WITH THE PATIENT. SAFETY PRECAUTIONS IN PLACE.
--- NOTE | 2018-12-23 | NUR ---
RESTING PATIENT RESTING IN BED. WATCHING TV. NO SIGNS OF DISTRESS NOTED. BREATHING EVEN AND UNLABORED. PROVIDED PATIENT WITH WATER. CALL LIGHT WITH THE PATIENT. SAFETY PRECAUTIONS IN PLACE.
[2018-12-23] MEDS: LevALBUTEROL HCL 1.25 MG/0.5 ML *CONC.* VIAL.NEB (XOPENEX CONC.) INH SCH ×4 (00:59→19:41)
[2018-12-23 01:28] VITALS: BP_SYST 142
--- NOTE | 2018-12-23 02:10 | NUR ---
SLEEPING NO SIGNS OF DISTRESS NOTED. BREATHING EVEN AND UNLABORED. IVF INFUSING WELL. CALL LIGHT WITH THE PATIENT. SAFETY PRECAUTIONS IN PLACE.
--- NOTE | 2018-12-23 04:30 | NUR ---
SLEEPING NO SIGNS OF DISTRESS NOTED. BREATHING EVEN AND UNLABORED. IVF INFUSING WELL. CALL LIGHT WITH THE PATIENT. SAFETY PRECAUTIONS IN PLACE.
[2018-12-23] MEDS: KCL 20 mEq in D5/0.45NS 1000mL 1,000 ML IV SCH (05:16)
--- NOTE | 2018-12-23 06:23 | NUR ---
CLOSING NOTES PATIENT RESTING COMFORTABLY IN BED. NO SIGNS OF DISTRESS NOTED. BREATHING EVEN AND UNLABORED. PICC LINE PATENT AND INTACT, INFUSING FLUIDS. ZAVALETA CATHETER IN PLACE. ALL NEEDS MET THROUGHOUT THE SHIFT. CALL LIGHT WITH THE PATIENT. SAFETY PRECAUTIONS IN PLACE. WILL ENDORSE CARE TO DAY SHIFT RN.
[2018-12-23] MEDS: ACETYLCYSTEINE 10% 4 ML VIAL (RT) INH SCH ×3 (07:32→19:41)
--- NOTE | 2018-12-23 07:45 | NUR ---
Opening note patient resting in bed, a/x3-4, periods of forgetfulness, assessment complete, patient denies pain, is hungry, PICC line to right arm is patent and infusing well, IV to left upper arm patent, educated the patient optoelectronics engineer light system and to call for any assistance and educated on plan of care, she verbalized understanding, bed in lowest position, three side rails up, bed alarm on, call light within reach, fall and aspiration precautions in place.
[2018-12-23 08:33] VITALS: BP_SYST 136
[2018-12-23] MEDS: AZITHROMYCIN 500 MG in NS 250 ML IV SCH (09:23)
[2018-12-23] MEDS: FAMOTIDINE PF 20 MG/2 ML VIAL IVP SCH ×2 (09:23→20:43)
[2018-12-23] MEDS: ENOXAPARIN SODIUM 40 MG/0.4 ML SYRINGE SUBCUT SCH (09:24)
[2018-12-23] MEDS: DOXYCYCLINE HYCLATE 100 MG CAPSULE PO SCH ×2 (09:25→20:43)
--- NOTE | 2018-12-23 09:25 | NUR ---
Medications patient resting in bed, awake, denies pain, educated on medications uses and potential side effects, she verbalized understanding, tolerated PO medication well, PICC line is patent and infusing well, no other needs at this time, continuing to monitor, bed in lowest position, three side rails up, bed alarm on, call light placed within reach, fall and aspiration precautions in place.
--- NOTE | 2018-12-23 10:57 | NUR ---
RN rounds patient resting in bed, awake, denies pain, patient asking to go home, informed her that the doctor needs to come see her first, she verbalizes understanding, discontinued IVF per orders, no other needs at this time, continuing to monitor patient, bed in lowest position, three side rails up, call light within reach, fall and aspiration precautions in place.
[2018-12-23] MEDS: FLUCONAZOLE 100 mg/ NS 50 ML IV SCH (12:11)
--- NOTE | 2018-12-23 12:11 | NUR ---
RN rounds/Medications patient resting in bed, awake, denies pain, educated on IV Antibiotic uses and potential side effects, she verbalized understanding, PICC line is patent and infusing well, no other needs at this time, continuing to monitor, bed in lowest position, three side rails up, bed alarm on, call light placed within reach, fall and aspiration precautions in place.
[2018-12-23 12:35] VITALS: BP_SYST 155
--- NOTE | 2018-12-23 13:46 | NUR ---
PHYSICAL THERAPY CO-SIGN The Physical Therapy Progress Notes documented by Record Maker have been reviewed. Reviewed/Co-Signed by: Anil Geronimo PT Documentation Done by: ZARI GRUBBS PTA Addendum: 12/23/18 at 1348 by Anil Geronimo PT Amended: Links added.
--- NOTE | 2018-12-23 13:46 | NUR ---
PHYSICAL THERAPY CO-SIGN The Physical Therapy Progress Notes documented by Anode Crew Supervisor have been reviewed. Reviewed/Co-Signed by: Anil Geronimo PT Documentation Done by: ZARI GRUBBS PTA Addendum: 12/23/18 at 1348 by Anil Geronimo PT Amended: Links added.
--- NOTE | 2018-12-23 14:02 | NUR ---
Dr. Jay zhu stated that according to Dr. Grissom the patient will be there at least 1-2 more days, will inform the patient's family.
--- NOTE | 2018-12-23 15:41 | NUR ---
Called family patient's father, Jhonny [phone] regarding plan of care, patient might be transferred back to [facility] tomorrow, Jhonny verbalized understanding.
--- NOTE | 2018-12-23 15:51 | NUR ---
RN rounds patient resting in bed, awake, updated her that I spoke with her father, she verbalized understanding, RT with patient at this time, will suction patient, continuing to monitor, patient in stable condition.
[2018-12-23 16:12] VITALS: BP_SYST 162
--- NOTE | 2018-12-23 17:35 | NUR ---
RN rounds patient resting in bed, awake, her father is at bedside, patient denies pain, patient in stable condition, continuing to monitor, bed in lowest position, three side rails up, bed alarm on, fall and aspiration precautions in place.
--- NOTE | 2018-12-23 18:30 | NUR ---
Closing note patient resting in bed, eyes closed, breathing is even and unlabored, no signs of distress, stable condition, will endorse report to NOC shift nurse, bed in lowest position, three side rails up, bed alarm on, fall and aspiration precautions in place.
--- NOTE | 2018-12-23 18:37 | NUR ---
Spoke with patient's father Jhonny informed me that he will be in a class tomorrow 12/24/18 from 9am-12pm if there are any update regarding plan of care please call him and leave him a message, he will come in to see the patient around 1pm tomorrow 12/24/18.
--- NOTE | 2018-12-23 19:35 | NUR ---
OPENING NOTES Patient is alert, watching television. No acute respiratory distress observed, 2L NC. Right PICC SL, dressings c/d/i. Patient states 0/10 pain at this time. Call light within reach, bed alarm refused after patient education on risks and benefits. Patient verbalizes understanding. Bed is at lowest position. Will continue to monitor.
[2018-12-23 20:00] VITALS: BP_SYST 142
--- NOTE | 2018-12-23 22:10 | NUR ---
Patient is alert, states 0/10 pain at this time. No signs of SOB noted. Safety precautions in place. Will continue to monitor.
--- NOTE | 2018-12-24 00:15 | NUR ---
Patient is asleep, television on. No signs of acute respiratory distress, 2L NC. Safety precautions in place. Will continue to monitor.
[2018-12-24] MEDS: LevALBUTEROL HCL 1.25 MG/0.5 ML *CONC.* VIAL.NEB (XOPENEX CONC.) INH SCH ×2 (01:00→13:43)
[2018-12-24 01:47] VITALS: BP_SYST 134
--- NOTE | 2018-12-24 02:15 | NUR ---
Patient is resting, eyes closed. Patient states no SOB at this time. Safety precautions in place. Will continue to monitor.
--- NOTE | 2018-12-24 04:25 | NUR ---
Patient is asleep, no signs of acute respiratory distress observed. Safety precautions in place. Will continue to monitor.
--- NOTE | 2018-12-24 06:14 | NUR ---
CLOSING NOTES Patient is resting, no signs of acute respiratory distress observed, 2L NC. Right UA PICC patent, dressings c/d/i. Park catheter draining per gravity, no kinks, loops noted, not touching the floor. Call light within reach, bed alarm on, and bed at lowest position. All needs met throughout shift. Will endorse care to oncoming shift.
[2018-12-24] MEDS: ACETYLCYSTEINE 10% 4 ML VIAL (RT) INH SCH (07:28)
--- NOTE | 2018-12-24 08:00 | NUR ---
Note Pt assisted in sitting up in bed to eat breakfast. No SOB/resp distress or pain/discomfort was noted at this time. MOUNA PICC intact and patent at this time. Tele unit attached and intact at this time. Park catheter intact and draining. No needs noted at this time. Pt being fed her breakfast by [employer]. Call light within reach.
[2018-12-24 08:17] VITALS: BP_SYST 137
[2018-12-24] MEDS: DOXYCYCLINE HYCLATE 100 MG CAPSULE PO SCH (08:31)
[2018-12-24] MEDS: FAMOTIDINE PF 20 MG/2 ML VIAL IVP SCH (09:41)
[2018-12-24] MEDS: AZITHROMYCIN 500 MG in NS 250 ML IV SCH (09:42)
[2018-12-24] MEDS: ENOXAPARIN SODIUM 40 MG/0.4 ML SYRINGE SUBCUT SCH (09:49)
--- NOTE | 2018-12-24 11:00 | NUR ---
Note Pt resting in bed. Hygiene care was given by [employer] nursing students at this time. Pt's brother called for update on whether pt is being transferred to SNF today or note. Call light within reach.
--- NOTE | 2018-12-24 12:19 | NUR ---
Discharge Planning: DCP faxed pt referral to [facility] (f [phone] p [phone]) DCP to follow up Addendum: 12/24/18 at 1431 by Rosaura Foster DP [facility] (f [phone] p [phone]) 12B, [facility] ([phone]) 6:30pm P/U for bariatric pt. Patient packet taken to nurse station nurse made aware.
[2018-12-24 12:38] VITALS: BP_SYST 118
--- NOTE | 2018-12-24 14:15 | NUR ---
Note Dr Thompson on the floor and assessment completed. Orders for SNF placement placed and pt to be transferred back to [facility] today. Tele unit was dc'd and returned to property assessment monitor at this time. No needs noted at this time. Pt's father Jhonny at bedside and was notified that pt will be transferred to [facility] today at 1600. Call light within reach.
--- NOTE | 2018-12-24 16:03 | NUR ---
DC Planning: phoned to notified pt's father/Jhonny # [phone] jose the pt is being discharged back to [facility] this evening. He may call nursing unit at the provided number if have any questions or concerns.
[2018-12-24 16:37] VITALS: BP_SYST 127
[2018-12-24 16:39] VITALS: BP_SYST 132
[2018-12-24] MEDS ORDERED: DOXY100T2 PO (16:48)
--- NOTE | 2018-12-24 16:55 | NUR ---
Note Report was given to Nuris MICHEL at [facility]. RN requested MOUNA PICC be kept for possible use at their facility.
--- NOTE | 2018-12-24 17:45 | NUR ---
Note Pt dressed in orange gown and sheet for transfer. Left AC IV was dc'd - site benign, no bleeding/drainage/swelling/tenderness at site noted at this time. Pt has adult brief on at this time. Discharge packet ready and at nurses' station for transfer. Pt's father Jhonny came back to room at 1730. Signed discharge packet and transfer sheet at this time. Pt has O2 on at 2L/nc for comfort at this time. No needs noted at this time. Call light within reach. Pt has no belongings at this time. Pt has her glasses on at this time. Tele unit was dc'd and returned to solar fabrication technician around 1600.
--- NOTE | 2018-12-24 18:15 | NUR ---
Note Pt's Park catheter was dc'd at this time. Pt sitting up in bed, was fed her dinner by [employer] (Vashti). Pt was checked on q1' and PRN all shift for needs and care. MOUNA PICC was flushed with NS 10cc each port and capped. No SOB/resp distress or pain/discomfort was noted at this time. Pt stable. Pt was maintained with safety precautions all shift. Pt's father Jhonny at bedside. Pt has her O2 on at 2L/nc. Call light within reach.
--- NOTE | 2018-12-25 10:51 | NUR ---
PHYSICAL THERAPY CO-SIGN The Physical Therapy Progress Notes documented by Research Engineer have been reviewed. Reviewed/Co-Signed by: Anil Ruiz PT Documentation Done by: ZARI GRUBBS PTA Addendum: 12/25/18 at 1051 by Anil Geronimo PT Amended: Links added.
== END 2018-12-24 18:59 | DRG 871 ==
LOC: SED 23:50 → SIC 12-19 01:51 → STU 12-21 16:36 → SMU 12-24 14:31
PROVIDERS: ADMIT Family Medicine; ATTEND Family Medicine
PROC: 02HV33Z Insertion of Infusion Device into Superior Vena Cava, Percutaneous Approach (ICD-10-PCS; principal; 2018-12-19)
PROC: B548ZZA Ultrasonography of Superior Vena Cava, Guidance (ICD-10-PCS; 2018-12-19)
DX: A41.9 Sepsis, unspecified organism (principal); R65.21 Severe sepsis with septic shock; J69.0 Pneumonitis due to inhalation of food and vomit; R53.2 Functional quadriplegia; J96.01 Acute respiratory failure with hypoxia; E87.1 Hypo-osmolality and hyponatremia; G12.21 Amyotrophic lateral sclerosis; Z68.43 Body mass index [BMI] 50.0-59.9, adult; J98.11 Atelectasis; E66.9 Obesity, unspecified; I10 Essential (primary) hypertension; J44.9 Chronic obstructive pulmonary disease, unspecified; K21.9 Gastro-esophageal reflux disease without esophagitis; R13.10 Dysphagia, unspecified; Z74.01 Bed confinement status; Z87.01 Personal history of pneumonia (recurrent); Z79.899 Other long term (current) drug therapy; Z79.82 Long term (current) use of aspirin; Z88.8 Allergy status to other drugs, medicaments and biological substances
CPT/HCPCS: 36415; 36600; 71045; 71260-TC; 80048; 80053; 81000-TC; 82803-TC; 83605; 85025; 85610-TC; 85730-TC; 86738; 87040-TC; 87070-TC; 87081; 87205-TC; 92610-GN; 93005; 94640; 94668; 94760; 96365; 96375; 97110-GP; 97161-GP; 97530-GP; 99291; C1751; G0378; J0456; J1450; J1650; J2185; J2543; J2930; J3370; J3480; J3490; J7050; J7608; J7612; Q9967

== ENCOUNTER 2019-03-31 17:51 | Inpatient (IN) | payer OTHER, MEDICAID ==
[~2019-03-31] VITALS: Ht 160 cm; Wt 103.9 kg
[~2019-03-31 17:51] MED LIST changes: -CRAN450C PO; +DOXY100T2 PO; +LEVA1.2527 NEB; -MULT-976 PO; +POTA10TA15 PO; -TRAZ-250 PO
[2019-03-31 17:55] VITALS: BP_SYST 163
[2019-03-31] MEDS ORDERED: OMEP20CA11 PO (18:04)
[2019-03-31] MEDS ORDERED: IPRATROPIUM/ALBUTEROL SULFATE 3 ML AMPUL.NEB (DUONEB) INH ONE (18:30)
[2019-03-31] MEDS ORDERED: methylPREDNISolone SOD SUCC/PF 62.5 MG/ML VIAL IVP ONE (18:30)
[2019-03-31 19:09] LABS: BASOPHILS # (AUTO) 0.1 K/uL (0.0-0.2); BASOPHILS % (AUTO) 0.7 % (0.0-2.0); EOSINOPHILS # (AUTO) 0.1 K/uL (0.0-0.4); EOSINOPHILS % (AUTO) 0.6 % (0.0-4.0); HEMATOCRIT 42.1 % (36-48); HEMOGLOBIN 13.7 g/dL (12.0-16.0); LYMPHOCYTES # (AUTO) 0.9 K/uL (1.0-5.5); MEAN CORPUSCULAR HEMOGLOBIN 27 pg (27-31); MEAN CORPUSCULAR HGB CONC 33 % (32-36); MEAN CORPUSCULAR VOLUME 82 fL (79.0-98.0); MONOCYTES # (AUTO) 0.9 K/uL (0.0-1.0); MONOCYTES % (AUTO) 6.4 % (1.7-9.3); NEUTROPHILS # (AUTO) 12.3 K/uL (1.8-7.7); NEUTROPHILS % (AUTO) 86.3 % (40.0-70.0); PLATELET COUNT (AUTO) 401 K/uL (130-430); RED BLOOD CELL COUNT(AUTO) 5.13 MIL/uL (4.2-6.2); WHITE BLOOD COUNT (AUTO) 14.3 K/uL (4.8-10.8)
[2019-03-31 20:19] LABS: CALCIUM 8.9 mg/dL (8.4-11.0); CREATININE 0.59 mg/dL (0.55-1.30); POTASSIUM 4.2 mmol/L (3.5-5.1)
[2019-03-31 20:24] LABS: ALBUMIN 3.5 g/dL (3.4-4.8); TOTAL BILIRUBIN 0.4 mg/dL (0.0-1.0)
[2019-03-31] MEDS ORDERED: ACETAMINOPHEN 325 MG TABLET PO PRN (21:45)
[2019-03-31] MEDS ORDERED: cefTRIAXone 1 GM IVPB PREMIX 50 ML IV ONE (21:45)
[2019-03-31 22:07] VITALS: BP_SYST 131
[2019-03-31] MEDS ORDERED: PIPERACILLIN/TAZO 3.375/DEX-IS 50 ML IV SCH (22:45)
[2019-03-31 23:20] VITALS: BP_SYST 131
[2019-03-31] MEDS ORDERED: PIPERACILLIN/TAZOBACTAM 3.375 GM/VIAL (ZOSYN) IV ONE (23:36)
[2019-03-31] MEDS ORDERED: KCL 20 mEq in D5/0.45NS 1000mL 1,000 ML IV ONE (23:36)
[2019-04-01] VITALS (17 sets, daily range): BP systolic 127–165
[2019-04-01] MEDS ORDERED: LevALBUTEROL HCL 1.25 MG/0.5 ML *CONC.* VIAL.NEB (XOPENEX CONC.) INH PRN
[2019-04-01] MEDS: KCL 20 mEq in D5/0.45NS 1000mL 1,000 ML IV SCH ×3 (01:00→22:24)
[2019-04-01] MEDS: methylPREDNISolone SOD SUCC/PF 62.5 MG/ML VIAL IVP SCH ×4 (01:08→22:22)
[2019-04-01] MEDS: LevALBUTEROL HCL 1.25 MG/0.5 ML *CONC.* VIAL.NEB (XOPENEX CONC.) INH SCH ×5 (01:32→19:35)
[2019-04-01] MEDS ORDERED: AZITHROMYCIN 500 MG in NS 250 ML IV SCH (09:00)
[2019-04-01] MEDS ORDERED: METOPROLOL TARTRATE 25 MG TABLET PO SCH (09:00)
[2019-04-01] MEDS ORDERED: OMEPRAZOLE Non-Formulary 20 MG CAPSULE.DR PO SCH (09:00)
[2019-04-01] MEDS ORDERED: LevALBUTEROL HCL 1.25 MG/0.5 ML *CONC.* VIAL.NEB (XOPENEX CONC.) INH SCH (09:00)
[2019-04-01] MEDS: PANTOPRAZOLE SODIUM 40 MG TAB PO SCH (09:26)
[2019-04-01] MEDS: BACLOFEN 10 MG TABLET PO SCH ×2 (09:27→22:23)
[2019-04-01] MEDS: POTASSIUM CHLORIDE 10 MEQ TAB.PRT.SR PO SCH ×2 (09:27→22:22)
[2019-04-01] MEDS: ASPIRIN 325 MG TABLET PO SCH (09:27)
[2019-04-01] MEDS: DOCUSATE SODIUM 100 MG CAPSULE PO SCH ×2 (09:27→22:22)
[2019-04-01 12:56] LABS: CALCIUM 8.5 mg/dL (8.4-11.0); CREATININE 0.44 mg/dL (0.55-1.30); POTASSIUM 3.5 mmol/L (3.5-5.1)
[2019-04-01 13:01] LABS: BASOPHILS % (AUTO) 0.1 % (0.0-2.0); HEMATOCRIT 38.6 % (36-48); HEMOGLOBIN 12.7 g/dL (12.0-16.0); LYMPHOCYTES # (AUTO) 0.5 K/uL (1.0-5.5); LYMPHOCYTES % (AUTO) 3.7 % (20.5-51.5); MEAN CORPUSCULAR HEMOGLOBIN 27 pg (27-31); MEAN CORPUSCULAR HGB CONC 33 % (32-36); MEAN CORPUSCULAR VOLUME 82 fL (79.0-98.0); MONOCYTES # (AUTO) 0.3 K/uL (0.0-1.0); MONOCYTES % (AUTO) 2.3 % (1.7-9.3); NEUTROPHILS # (AUTO) 11.7 K/uL (1.8-7.7); NEUTROPHILS % (AUTO) 93.9 % (40.0-70.0); PLATELET COUNT (AUTO) 340 K/uL (130-430); RED CELL DISTRIBUTION WIDTH 16.8 % (9.0-15.0); WHITE BLOOD COUNT (AUTO) 12.5 K/uL (4.8-10.8)
[2019-04-01] MEDS: LINEZOLID 300 ML IV SCH ×2 (13:01→22:21)
[2019-04-01 13:51] LABS: ERYTHROCYTE SEDIMENTATION RATE 40 MM/HR (0-20)
[2019-04-01] MEDS ORDERED: cloNIDine HCL 0.1 MG TABLET PO ONE (17:45)
[2019-04-01] MEDS: MELATONIN 3 MG TABLET PO SCH (22:23)
[2019-04-01] MEDS: CARVEDILOL 12.5 MG TABLET (COREG) PO SCH (22:23)
[2019-04-01] MEDS: INSULIN REGULAR, HUMAN 100 UNITS/ML, 10 ML VIAL (humuLIN R) SUBCUT PRN (22:25)
[2019-04-01] MEDS: ENOXAPARIN SODIUM 40 MG/0.4 ML SYRINGE SUBCUT SCH (22:26)
[2019-04-02] VITALS (24 sets, daily range): BP systolic 116–178
[2019-04-02] MEDS: LevALBUTEROL HCL 1.25 MG/0.5 ML *CONC.* VIAL.NEB (XOPENEX CONC.) INH SCH ×4 (00:45→21:11)
[2019-04-02 05:52] LABS: CALCIUM 8.6 mg/dL (8.4-11.0); CREATININE 0.38 mg/dL (0.55-1.30); POTASSIUM 4.3 mmol/L (3.5-5.1)
[2019-04-02 05:57] LABS: BASOPHILS % (AUTO) 0.3 % (0.0-2.0); EOSINOPHILS % (AUTO) 0.1 % (0.0-4.0); HEMATOCRIT 40.3 % (36-48); LYMPHOCYTES # (AUTO) 0.6 K/uL (1.0-5.5); LYMPHOCYTES % (AUTO) 4.8 % (20.5-51.5); MEAN CORPUSCULAR HEMOGLOBIN 27 pg (27-31); MEAN CORPUSCULAR HGB CONC 32 % (32-36); MEAN CORPUSCULAR VOLUME 83 fL (79.0-98.0); MONOCYTES # (AUTO) 0.5 K/uL (0.0-1.0); MONOCYTES % (AUTO) 3.6 % (1.7-9.3); NEUTROPHILS # (AUTO) 12.2 K/uL (1.8-7.7); NEUTROPHILS % (AUTO) 91.2 % (40.0-70.0); PLATELET COUNT (AUTO) 364 K/uL (130-430); RED BLOOD CELL COUNT(AUTO) 4.87 MIL/uL (4.2-6.2); RED CELL DISTRIBUTION WIDTH 16.5 % (9.0-15.0); WHITE BLOOD COUNT (AUTO) 13.4 K/uL (4.8-10.8)
[2019-04-02] MEDS: methylPREDNISolone SOD SUCC/PF 62.5 MG/ML VIAL IVP SCH ×3 (06:48→21:14)
[2019-04-02] MEDS: INSULIN REGULAR, HUMAN 100 UNITS/ML, 10 ML VIAL (humuLIN R) SUBCUT PRN ×4 (06:51→20:53)
[2019-04-02] MEDS: LINEZOLID 300 ML IV SCH ×2 (09:19→20:45)
[2019-04-02] MEDS: POTASSIUM CHLORIDE 10 MEQ TAB.PRT.SR PO SCH ×2 (09:22→20:44)
[2019-04-02] MEDS: DOCUSATE SODIUM 100 MG CAPSULE PO SCH ×2 (09:22→20:44)
[2019-04-02] MEDS: BACLOFEN 10 MG TABLET PO SCH ×2 (09:23→20:44)
[2019-04-02] MEDS: CARVEDILOL 12.5 MG TABLET (COREG) PO SCH ×2 (09:23→20:44)
[2019-04-02] MEDS: ASPIRIN 325 MG TABLET PO SCH (09:23)
[2019-04-02] MEDS: PANTOPRAZOLE SODIUM 40 MG TAB PO SCH (09:23)
[2019-04-02] MEDS: KCL 20 mEq in D5/0.45NS 1000mL 1,000 ML IV SCH (13:02)
[2019-04-02] MEDS: cloNIDine HCL 0.1 MG TABLET PO PRN (18:19)
[2019-04-02] MEDS: MELATONIN 3 MG TABLET PO SCH (20:45)
[2019-04-02] MEDS: ENOXAPARIN SODIUM 40 MG/0.4 ML SYRINGE SUBCUT SCH (20:46)
[2019-04-03] VITALS (23 sets, daily range): BP systolic 96–194
[2019-04-03] MEDS: cloNIDine HCL 0.1 MG TABLET PO PRN ×2 (02:07→18:06)
[2019-04-03] MEDS: KCL 20 mEq in D5/0.45NS 1000mL 1,000 ML IV SCH ×2 (02:08→15:00)
[2019-04-03] MEDS: LevALBUTEROL HCL 1.25 MG/0.5 ML *CONC.* VIAL.NEB (XOPENEX CONC.) INH SCH ×4 (02:20→19:00)
[2019-04-03 06:27] LABS: BASOPHILS % (AUTO) 0.1 % (0.0-2.0); HEMATOCRIT 38.7 % (36-48); HEMOGLOBIN 12.6 g/dL (12.0-16.0); LYMPHOCYTES # (AUTO) 0.9 K/uL (1.0-5.5); LYMPHOCYTES % (AUTO) 6.5 % (20.5-51.5); MEAN CORPUSCULAR HEMOGLOBIN 27 pg (27-31); MEAN CORPUSCULAR HGB CONC 32 % (32-36); MEAN CORPUSCULAR VOLUME 82 fL (79.0-98.0); MONOCYTES # (AUTO) 1.1 K/uL (0.0-1.0); NEUTROPHILS # (AUTO) 11.6 K/uL (1.8-7.7); NEUTROPHILS % (AUTO) 85.4 % (40.0-70.0); PLATELET COUNT (AUTO) 391 K/uL (130-430); RED BLOOD CELL COUNT(AUTO) 4.72 MIL/uL (4.2-6.2); RED CELL DISTRIBUTION WIDTH 16.5 % (9.0-15.0); WHITE BLOOD COUNT (AUTO) 13.6 K/uL (4.8-10.8)
[2019-04-03] MEDS: methylPREDNISolone SOD SUCC/PF 62.5 MG/ML VIAL IVP SCH ×3 (06:30→22:24)
[2019-04-03 06:32] LABS: CALCIUM 8.6 mg/dL (8.4-11.0); CREATININE 0.4 mg/dL (0.55-1.30); POTASSIUM 3.9 mmol/L (3.5-5.1)
[2019-04-03] MEDS: INSULIN REGULAR, HUMAN 100 UNITS/ML, 10 ML VIAL (humuLIN R) SUBCUT PRN ×4 (06:37→20:18)
[2019-04-03] MEDS: POTASSIUM CHLORIDE 10 MEQ TAB.PRT.SR PO SCH ×2 (08:47→19:57)
[2019-04-03] MEDS: PANTOPRAZOLE SODIUM 40 MG TAB PO SCH (08:48)
[2019-04-03] MEDS: CARVEDILOL 12.5 MG TABLET (COREG) PO SCH (08:48)
[2019-04-03] MEDS: ASPIRIN 325 MG TABLET PO SCH (08:48)
[2019-04-03] MEDS: BACLOFEN 10 MG TABLET PO SCH ×2 (08:48→19:57)
[2019-04-03] MEDS: LINEZOLID 300 ML IV SCH ×2 (08:50→20:14)
[2019-04-03] MEDS: DOCUSATE SODIUM 100 MG CAPSULE PO SCH ×2 (08:50→20:14)
[2019-04-03] MEDS: CARVEDILOL 25 MG TABLET (COREG) PO SCH (19:58)
[2019-04-03] MEDS: ENOXAPARIN SODIUM 40 MG/0.4 ML SYRINGE SUBCUT SCH (20:06)
[2019-04-03] MEDS: MELATONIN 3 MG TABLET PO SCH (20:22)
[2019-04-03] MEDS ORDERED: ACETYLCYSTEINE 20% 4 ML VIAL (RT) INH SCH (23:30)
[2019-04-04] VITALS (24 sets, daily range): BP systolic 93–227
[2019-04-04] MEDS: hydrALAZINE HCL 20 MG/ML VIAL IVP PRN ×3 (00:44→23:23)
[2019-04-04] MEDS: LevALBUTEROL HCL 1.25 MG/0.5 ML *CONC.* VIAL.NEB (XOPENEX CONC.) INH SCH ×4 (01:25→19:35)
[2019-04-04] MEDS ORDERED: LevALBUTEROL HCL 1.25 MG/0.5 ML *CONC.* VIAL.NEB (XOPENEX CONC.) INH ONE (01:39)
[2019-04-04] MEDS: KCL 20 mEq in D5/0.45NS 1000mL 1,000 ML IV SCH ×2 (04:45→18:22)
[2019-04-04] MEDS: methylPREDNISolone SOD SUCC/PF 62.5 MG/ML VIAL IVP SCH ×3 (06:04→20:33)
[2019-04-04] MEDS: INSULIN REGULAR, HUMAN 100 UNITS/ML, 10 ML VIAL (humuLIN R) SUBCUT PRN ×4 (07:26→20:48)
[2019-04-04] MEDS: ACETYLCYSTEINE 20% 4 ML VIAL (RT) INH SCH ×3 (07:59→19:37)
[2019-04-04] MEDS: BACLOFEN 10 MG TABLET PO SCH ×2 (08:26→20:40)
[2019-04-04] MEDS: LINEZOLID 300 ML IV SCH ×2 (08:26→20:31)
[2019-04-04] MEDS: DOCUSATE SODIUM 100 MG CAPSULE PO SCH ×2 (08:26→20:33)
[2019-04-04] MEDS: ASPIRIN 325 MG TABLET PO SCH (08:27)
[2019-04-04] MEDS: PANTOPRAZOLE SODIUM 40 MG TAB PO SCH (08:27)
[2019-04-04] MEDS: CARVEDILOL 25 MG TABLET (COREG) PO SCH ×2 (08:27→20:45)
[2019-04-04] MEDS: POTASSIUM CHLORIDE 10 MEQ TAB.PRT.SR PO SCH ×2 (08:27→20:40)
[2019-04-04] MEDS: ALPRAZolam 0.25 MG TABLET PO PRN (20:33)
[2019-04-04] MEDS: MELATONIN 3 MG TABLET PO SCH (20:33)
[2019-04-04] MEDS: ENOXAPARIN SODIUM 40 MG/0.4 ML SYRINGE SUBCUT SCH (20:34)
[2019-04-05] VITALS (24 sets, daily range): BP systolic 93–166
[2019-04-05] MEDS: ALPRAZolam 0.25 MG TABLET PO PRN ×2 (00:52→06:01)
[2019-04-05] MEDS: ACETYLCYSTEINE 20% 4 ML VIAL (RT) INH SCH ×4 (01:36→19:37)
[2019-04-05] MEDS: LevALBUTEROL HCL 1.25 MG/0.5 ML *CONC.* VIAL.NEB (XOPENEX CONC.) INH SCH ×4 (01:36→19:37)
[2019-04-05] MEDS: methylPREDNISolone SOD SUCC/PF 62.5 MG/ML VIAL IVP SCH (06:02)
[2019-04-05] MEDS: INSULIN REGULAR, HUMAN 100 UNITS/ML, 10 ML VIAL (humuLIN R) SUBCUT PRN ×4 (07:06→20:49)
[2019-04-05] MEDS: KCL 20 mEq in D5/0.45NS 1000mL 1,000 ML IV SCH ×2 (08:21→20:51)
[2019-04-05] MEDS: LINEZOLID 300 ML IV SCH ×2 (08:21→20:51)
[2019-04-05] MEDS: CARVEDILOL 25 MG TABLET (COREG) PO SCH ×2 (08:23→20:41)
[2019-04-05] MEDS: PANTOPRAZOLE SODIUM 40 MG TAB PO SCH (08:23)
[2019-04-05] MEDS: POTASSIUM CHLORIDE 10 MEQ TAB.PRT.SR PO SCH ×2 (08:23→20:41)
[2019-04-05] MEDS: DOCUSATE SODIUM 100 MG CAPSULE PO SCH ×2 (08:24→20:40)
[2019-04-05] MEDS: BACLOFEN 10 MG TABLET PO SCH ×2 (08:24→20:40)
[2019-04-05] MEDS: ASPIRIN 325 MG TABLET PO SCH (08:24)
[2019-04-05] MEDS: cloNIDine HCL 0.1 MG TABLET PO PRN (14:35)
[2019-04-05] MEDS: methylPREDNISolone SOD SUCC 40 MG/ML VIAL IVP SCH (18:03)
[2019-04-05] MEDS: hydrALAZINE HCL 20 MG/ML VIAL IVP PRN (18:04)
[2019-04-05] MEDS: MELATONIN 3 MG TABLET PO SCH (20:41)
[2019-04-05] MEDS: ENOXAPARIN SODIUM 40 MG/0.4 ML SYRINGE SUBCUT SCH (20:47)
[2019-04-06] VITALS (16 sets, daily range): BP systolic 89–166
[2019-04-06] MEDS: LevALBUTEROL HCL 1.25 MG/0.5 ML *CONC.* VIAL.NEB (XOPENEX CONC.) INH SCH ×4 (01:16→19:33)
[2019-04-06] MEDS: hydrALAZINE HCL 20 MG/ML VIAL IVP PRN (04:36)
[2019-04-06 06:05] LABS: BASOPHILS # (AUTO) 0.5 K/uL (0.0-0.2); BASOPHILS % (AUTO) 2.2 % (0.0-2.0); EOSINOPHILS # (AUTO) 0.6 K/uL (0.0-0.4); EOSINOPHILS % (AUTO) 2.6 % (0.0-4.0); HEMATOCRIT 44.7 % (36-48); HEMOGLOBIN 15.2 g/dL (12.0-16.0); LYMPHOCYTES # (AUTO) 2.1 K/uL (1.0-5.5); LYMPHOCYTES % (AUTO) 9.6 % (20.5-51.5); MEAN CORPUSCULAR HEMOGLOBIN 28 pg (27-31); MEAN CORPUSCULAR HGB CONC 34 % (32-36); MEAN CORPUSCULAR VOLUME 83 fL (79.0-98.0); MONOCYTES # (AUTO) 1.2 K/uL (0.0-1.0); MONOCYTES % (AUTO) 5.4 % (1.7-9.3); NEUTROPHILS # (AUTO) 17.5 K/uL (1.8-7.7); NEUTROPHILS % (AUTO) 80.2 % (40.0-70.0); PLATELET COUNT (AUTO) 444 K/uL (130-430); RED BLOOD CELL COUNT(AUTO) 5.42 MIL/uL (4.2-6.2); RED CELL DISTRIBUTION WIDTH 17.3 % (9.0-15.0); WHITE BLOOD COUNT (AUTO) 21.8 K/uL (4.8-10.8)
[2019-04-06] MEDS: methylPREDNISolone SOD SUCC 40 MG/ML VIAL IVP SCH ×2 (07:00→19:07)
[2019-04-06] MEDS: POTASSIUM CHLORIDE 10 MEQ TAB.PRT.SR PO SCH ×2 (09:00→21:00)
[2019-04-06] MEDS: PANTOPRAZOLE SODIUM 40 MG TAB PO SCH (09:00)
[2019-04-06] MEDS: BACLOFEN 10 MG TABLET PO SCH ×2 (09:00→21:00)
[2019-04-06] MEDS: CARVEDILOL 25 MG TABLET (COREG) PO SCH ×2 (09:00→21:00)
[2019-04-06] MEDS: ASPIRIN 325 MG TABLET PO SCH (09:00)
[2019-04-06] MEDS: DOCUSATE SODIUM 100 MG CAPSULE PO SCH ×2 (09:00→21:00)
[2019-04-06] MEDS: KCL 20 mEq in D5/0.45NS 1000mL 1,000 ML IV SCH (11:05)
[2019-04-06 11:20] LABS: CALCIUM 8.9 mg/dL (8.4-11.0); CREATININE 0.2 mg/dL (0.55-1.30); TOTAL BILIRUBIN 0.3 mg/dL (0.0-1.0)
[2019-04-06 11:21] LABS: ALBUMIN 3.1 g/dL (3.4-4.8)
[2019-04-06] MEDS: ACETYLCYSTEINE 20% 4 ML VIAL (RT) INH SCH ×3 (13:58→19:34)
[2019-04-06] MEDS: MEROPENEM 1 GM in NS 100 ML IV SCH ×2 (14:23→21:44)
[2019-04-06] MEDS: INSULIN REGULAR, HUMAN 100 UNITS/ML, 10 ML VIAL (humuLIN R) SUBCUT PRN ×2 (19:02→21:47)
[2019-04-06] MEDS: MELATONIN 3 MG TABLET PO SCH (21:00)
[2019-04-06] MEDS: ENOXAPARIN SODIUM 40 MG/0.4 ML SYRINGE SUBCUT SCH (21:46)
[2019-04-07] VITALS (24 sets, daily range): BP systolic 98–168
[2019-04-07] MEDS: LevALBUTEROL HCL 1.25 MG/0.5 ML *CONC.* VIAL.NEB (XOPENEX CONC.) INH SCH ×4 (00:30→19:00)
[2019-04-07] MEDS: ACETYLCYSTEINE 20% 4 ML VIAL (RT) INH SCH ×4 (00:30→19:00)
[2019-04-07] MEDS: KCL 20 mEq in D5/0.45NS 1000mL 1,000 ML IV SCH ×3 (00:40→21:20)
[2019-04-07 06:13] LABS: BASOPHILS % (AUTO) 0.1 % (0.0-2.0); HEMATOCRIT 41.7 % (36-48); HEMOGLOBIN 13.6 g/dL (12.0-16.0); LYMPHOCYTES # (AUTO) 1.7 K/uL (1.0-5.5); LYMPHOCYTES % (AUTO) 9.8 % (20.5-51.5); MEAN CORPUSCULAR HEMOGLOBIN 27 pg (27-31); MEAN CORPUSCULAR HGB CONC 33 % (32-36); MEAN CORPUSCULAR VOLUME 82 fL (79.0-98.0); MONOCYTES # (AUTO) 1.1 K/uL (0.0-1.0); MONOCYTES % (AUTO) 6.2 % (1.7-9.3); NEUTROPHILS # (AUTO) 14.6 K/uL (1.8-7.7); NEUTROPHILS % (AUTO) 83.9 % (40.0-70.0); PLATELET COUNT (AUTO) 394 K/uL (130-430); RED BLOOD CELL COUNT(AUTO) 5.08 MIL/uL (4.2-6.2); WHITE BLOOD COUNT (AUTO) 17.4 K/uL (4.8-10.8)
[2019-04-07] MEDS: MEROPENEM 1 GM in NS 100 ML IV SCH ×3 (06:51→22:05)
[2019-04-07] MEDS: methylPREDNISolone SOD SUCC 40 MG/ML VIAL IVP SCH ×2 (06:51→18:22)
[2019-04-07] MEDS: INSULIN REGULAR, HUMAN 100 UNITS/ML, 10 ML VIAL (humuLIN R) SUBCUT PRN ×4 (06:53→21:31)
[2019-04-07 08:57] LABS: ALANINE AMINOTRANSFERASE 54 U/L (12-78); ALBUMIN 2.4 g/dL (3.4-4.8); ANION GAP 2 (5-15); ASPARTATE AMINOTRANSFERASE 18 U/L (10-37); CALCIUM 7.4 mg/dL (8.4-11.0); CHLORIDE 98 mmol/L (98-107); GLUCOSE 202 mg/dL (70-99); POTASSIUM 3.7 mmol/L (3.5-5.1); SODIUM SERUM 138 mmol/L (136-145); TOTAL BILIRUBIN 0.3 mg/dL (0.0-1.0); UREA NITROGEN, BLOOD 9 mg/dL (8-21)
[2019-04-07] MEDS: CARVEDILOL 25 MG TABLET (COREG) PO SCH ×2 (09:00→21:12)
[2019-04-07] MEDS: PANTOPRAZOLE SODIUM 40 MG TAB PO SCH (09:00)
[2019-04-07] MEDS: DOCUSATE SODIUM 100 MG CAPSULE PO SCH ×2 (09:00→21:12)
[2019-04-07] MEDS: ASPIRIN 325 MG TABLET PO SCH (09:00)
[2019-04-07] MEDS: POTASSIUM CHLORIDE 10 MEQ TAB.PRT.SR PO SCH ×2 (09:00→21:12)
[2019-04-07] MEDS: BACLOFEN 10 MG TABLET PO SCH ×2 (09:00→21:11)
[2019-04-07 09:04] LABS: CREATININE < 0.20 mg/dL (0.55-1.30); GFR AFRICAN AMERICAN 501 mL/min (>90)
[2019-04-07] MEDS ORDERED: DEXTROSE 50% JECT 50 ML DISP.SYRIN IVP PRN (09:45)
[2019-04-07] MEDS ORDERED: *TPN PER PHARMACY XX PRN (09:45)
[2019-04-07 09:59] LABS: PHOSPHORUS 1.8 mg/dL (2.7-4.5)
[2019-04-07] MEDS: FAT EMULSIONS 250 ML IV SCH (19:57)
[2019-04-07] MEDS ORDERED: MVI IV SCH ×8 (21:00)
[2019-04-07] MEDS ORDERED: TRACE ELEMENTS IV SCH ×8 (21:00)
[2019-04-07] MEDS ORDERED: K PHOS IV SCH ×8 (21:00)
[2019-04-07] MEDS ORDERED: [UNRECOGNIZED DRUG - OTHER] IV SCH ×8 (21:00)
[2019-04-07] MEDS ORDERED: TPN CENTRAL IV SCH ×8 (21:00)
[2019-04-07] MEDS ORDERED: INSULIN REGULAR IV SCH ×8 (21:00)
[2019-04-07] MEDS: ALPRAZolam 0.25 MG TABLET PO PRN (21:12)
[2019-04-07] MEDS: ENOXAPARIN SODIUM 40 MG/0.4 ML SYRINGE SUBCUT SCH (21:21)
[2019-04-07] MEDS: MELATONIN 3 MG TABLET PO SCH (22:06)
[2019-04-08] VITALS (23 sets, daily range): BP systolic 72–155
[2019-04-08] MEDS: LevALBUTEROL HCL 1.25 MG/0.5 ML *CONC.* VIAL.NEB (XOPENEX CONC.) INH SCH ×4 (02:05→19:00)
[2019-04-08] MEDS: ACETYLCYSTEINE 20% 4 ML VIAL (RT) INH SCH ×4 (02:07→19:00)
[2019-04-08] MEDS: MEROPENEM 1 GM in NS 100 ML IV SCH ×3 (05:27→21:42)
[2019-04-08 05:42] LABS: BASOPHILS # (AUTO) 0.1 K/uL (0.0-0.2); BASOPHILS % (AUTO) 0.6 % (0.0-2.0); EOSINOPHILS % (AUTO) 0.2 % (0.0-4.0); HEMOGLOBIN 13.6 g/dL (12.0-16.0); LYMPHOCYTES # (AUTO) 1.7 K/uL (1.0-5.5); LYMPHOCYTES % (AUTO) 10.8 % (20.5-51.5); MEAN CORPUSCULAR HEMOGLOBIN 27 pg (27-31); MEAN CORPUSCULAR HGB CONC 33 % (32-36); MEAN CORPUSCULAR VOLUME 82 fL (79.0-98.0); MONOCYTES # (AUTO) 1.2 K/uL (0.0-1.0); MONOCYTES % (AUTO) 7.7 % (1.7-9.3); NEUTROPHILS # (AUTO) 12.9 K/uL (1.8-7.7); NEUTROPHILS % (AUTO) 80.7 % (40.0-70.0); PLATELET COUNT (AUTO) 352 K/uL (130-430); RED CELL DISTRIBUTION WIDTH 16.9 % (9.0-15.0)
[2019-04-08 06:16] LABS: CALCIUM 8.2 mg/dL (8.4-11.0); CREATININE 0.27 mg/dL (0.55-1.30); GLUCOSE 345 mg/dL (70-99); PHOSPHORUS 2.6 mg/dL (2.7-4.5); UREA NITROGEN, BLOOD 10 mg/dL (8-21)
[2019-04-08] MEDS: INSULIN REGULAR, HUMAN 100 UNITS/ML, 10 ML VIAL (humuLIN R) SUBCUT PRN ×4 (06:23→21:08)
[2019-04-08 06:26] LABS: CHLORIDE 95 mmol/L (98-107); SODIUM SERUM 130 mmol/L (136-145)
[2019-04-08] MEDS: methylPREDNISolone SOD SUCC 40 MG/ML VIAL IVP SCH ×2 (06:28→20:45)
[2019-04-08 06:34] LABS: GFR AFRICAN AMERICAN 354 mL/min (>90)
[2019-04-08 06:39] LABS: ANION GAP < 3 (5-15)
[2019-04-08] MEDS: CARVEDILOL 25 MG TABLET (COREG) PO SCH ×2 (09:00→20:40)
[2019-04-08] MEDS: ASPIRIN 325 MG TABLET PO SCH (09:00)
[2019-04-08] MEDS: DOCUSATE SODIUM 100 MG CAPSULE PO SCH ×2 (09:00→20:40)
[2019-04-08] MEDS: BACLOFEN 10 MG TABLET PO SCH ×2 (09:00→20:40)
[2019-04-08] MEDS: POTASSIUM CHLORIDE 10 MEQ TAB.PRT.SR PO SCH ×2 (09:00→20:41)
[2019-04-08] MEDS: PANTOPRAZOLE SODIUM 40 MG TAB PO SCH (09:00)
[2019-04-08] MEDS: MELATONIN 3 MG TABLET PO SCH (20:41)
[2019-04-08] MEDS ORDERED: K PHOS IV SCH ×9 (21:00)
[2019-04-08] MEDS ORDERED: TPN CENTRAL IV SCH ×9 (21:00)
[2019-04-08] MEDS ORDERED: MVI IV SCH ×9 (21:00)
[2019-04-08] MEDS ORDERED: INSULIN REGULAR IV SCH ×9 (21:00)
[2019-04-08] MEDS ORDERED: [UNRECOGNIZED DRUG - OTHER] IV SCH ×9 (21:00)
[2019-04-08] MEDS ORDERED: TRACE ELEMENTS IV SCH ×9 (21:00)
[2019-04-08] MEDS: ENOXAPARIN SODIUM 40 MG/0.4 ML SYRINGE SUBCUT SCH (21:01)
[2019-04-08] MEDS ORDERED: ENOXAPARIN SODIUM 40 MG/0.4 ML SYRINGE ONE (21:06)
[2019-04-08] MEDS: KCL 20 mEq in D5/0.45NS 1000mL 1,000 ML IV SCH (21:29)
[2019-04-08] MEDS: FAT EMULSIONS 250 ML IV SCH (21:38)
[2019-04-09] VITALS (24 sets, daily range): BP systolic 112–178
[2019-04-09] MEDS: ACETYLCYSTEINE 20% 4 ML VIAL (RT) INH SCH ×4 (01:34→20:03)
[2019-04-09] MEDS: LevALBUTEROL HCL 1.25 MG/0.5 ML *CONC.* VIAL.NEB (XOPENEX CONC.) INH SCH ×4 (01:34→20:03)
[2019-04-09] MEDS: MEROPENEM 1 GM in NS 100 ML IV SCH ×3 (06:26→22:33)
[2019-04-09] MEDS: INSULIN REGULAR, HUMAN 100 UNITS/ML, 10 ML VIAL (humuLIN R) SUBCUT PRN ×4 (06:38→22:35)
[2019-04-09] MEDS: CARVEDILOL 25 MG TABLET (COREG) PO SCH ×2 (09:00→21:00)
[2019-04-09] MEDS: ASPIRIN 325 MG TABLET PO SCH (09:00)
[2019-04-09] MEDS: POTASSIUM CHLORIDE 10 MEQ TAB.PRT.SR PO SCH ×2 (09:00→21:00)
[2019-04-09] MEDS: DOCUSATE SODIUM 100 MG CAPSULE PO SCH ×2 (09:00→21:00)
[2019-04-09] MEDS: BACLOFEN 10 MG TABLET PO SCH ×2 (09:00→21:00)
[2019-04-09] MEDS: methylPREDNISolone SOD SUCC 40 MG/ML VIAL IVP SCH ×2 (09:33→21:24)
[2019-04-09] MEDS: PANTOPRAZOLE SODIUM 40 MG/VIAL (PROTONIX) IVP SCH (09:34)
[2019-04-09 10:22] LABS: CALCIUM 7.8 mg/dL (8.4-11.0); CHLORIDE 97 mmol/L (98-107); CREATININE 0.27 mg/dL (0.55-1.30); GFR AFRICAN AMERICAN 354 mL/min (>90); GLUCOSE 307 mg/dL (70-99); PHOSPHORUS 3.3 mg/dL (2.7-4.5); POTASSIUM 3.7 mmol/L (3.5-5.1); SODIUM SERUM 131 mmol/L (136-145); UREA NITROGEN, BLOOD 14 mg/dL (8-21)
[2019-04-09 10:23] LABS: ANION GAP < 3 (5-15)
[2019-04-09] MEDS ORDERED: MVI IV SCH ×20 (15:45→21:00)
[2019-04-09] MEDS ORDERED: TPN CENTRAL IV SCH ×20 (15:45→21:00)
[2019-04-09] MEDS ORDERED: INSULIN REGULAR IV SCH ×20 (15:45→21:00)
[2019-04-09] MEDS ORDERED: [UNRECOGNIZED DRUG - OTHER] IV SCH ×20 (15:45→21:00)
[2019-04-09] MEDS ORDERED: TRACE ELEMENTS IV SCH ×20 (15:45→21:00)
[2019-04-09] MEDS: MELATONIN 3 MG TABLET PO SCH (21:00)
[2019-04-09] MEDS: ENOXAPARIN SODIUM 40 MG/0.4 ML SYRINGE SUBCUT SCH (21:28)
[2019-04-09] MEDS: FAT EMULSIONS 250 ML IV SCH (21:46)
[2019-04-09] MEDS: KCL 20 mEq in D5/0.45NS 1000mL 1,000 ML IV SCH (21:47)
[2019-04-10] VITALS (25 sets, daily range): BP systolic 99–174
[2019-04-10] MEDS: LevALBUTEROL HCL 1.25 MG/0.5 ML *CONC.* VIAL.NEB (XOPENEX CONC.) INH SCH ×2 (01:40→19:40)
[2019-04-10] MEDS: ACETYLCYSTEINE 20% 4 ML VIAL (RT) INH SCH ×2 (01:40→19:40)
[2019-04-10] MEDS: MEROPENEM 1 GM in NS 100 ML IV SCH ×3 (05:55→21:39)
[2019-04-10] MEDS: INSULIN REGULAR, HUMAN 100 UNITS/ML, 10 ML VIAL (humuLIN R) SUBCUT PRN ×4 (06:54→21:33)
[2019-04-10] MEDS: methylPREDNISolone SOD SUCC 40 MG/ML VIAL IVP SCH ×2 (08:01→21:38)
[2019-04-10] MEDS: PANTOPRAZOLE SODIUM 40 MG/VIAL (PROTONIX) IVP SCH (08:02)
[2019-04-10] MEDS: BACLOFEN 10 MG TABLET PO SCH ×2 (08:02→21:00)
[2019-04-10] MEDS: ASPIRIN 325 MG TABLET PO SCH (08:02)
[2019-04-10] MEDS: CARVEDILOL 25 MG TABLET (COREG) PO SCH ×2 (08:03→21:00)
[2019-04-10] MEDS: DOCUSATE SODIUM 100 MG CAPSULE PO SCH ×2 (08:03→21:00)
[2019-04-10] MEDS: POTASSIUM CHLORIDE 10 MEQ TAB.PRT.SR PO SCH ×2 (08:03→21:00)
[2019-04-10 08:20] LABS: BASOPHILS # (AUTO) 0.3 K/uL (0.0-0.2); BASOPHILS % (AUTO) 1.1 % (0.0-2.0); EOSINOPHILS # (AUTO) 0.1 K/uL (0.0-0.4); EOSINOPHILS % (AUTO) 0.2 % (0.0-4.0); HEMATOCRIT 42.7 % (36-48); HEMOGLOBIN 13.8 g/dL (12.0-16.0); LYMPHOCYTES # (AUTO) 4.9 K/uL (1.0-5.5); LYMPHOCYTES % (AUTO) 17.4 % (20.5-51.5); MEAN CORPUSCULAR HEMOGLOBIN 27 pg (27-31); MEAN CORPUSCULAR HGB CONC 32 % (32-36); MEAN CORPUSCULAR VOLUME 82 fL (79.0-98.0); MONOCYTES # (AUTO) 2.7 K/uL (0.0-1.0); MONOCYTES % (AUTO) 9.3 % (1.7-9.3); NEUTROPHILS # (AUTO) 20.5 K/uL (1.8-7.7); PLATELET COUNT (AUTO) 332 K/uL (130-430); RED CELL DISTRIBUTION WIDTH 16.9 % (9.0-15.0); WHITE BLOOD COUNT (AUTO) 28.5 K/uL (4.8-10.8)
[2019-04-10 11:23] LABS: ALANINE AMINOTRANSFERASE 51 U/L (12-78); ALBUMIN 2.7 g/dL (3.4-4.8); ANION GAP 1 (5-15); ASPARTATE AMINOTRANSFERASE 31 U/L (10-37); CALCIUM 8.1 mg/dL (8.4-11.0); CHLORIDE 100 mmol/L (98-107); GLUCOSE 241 mg/dL (70-99); POTASSIUM 3.7 mmol/L (3.5-5.1); SODIUM SERUM 137 mmol/L (136-145); TOTAL BILIRUBIN 0.6 mg/dL (0.0-1.0); UREA NITROGEN, BLOOD 14 mg/dL (8-21)
[2019-04-10 11:26] LABS: CREATININE < 0.20 mg/dL (0.55-1.30); GFR AFRICAN AMERICAN 501 mL/min (>90)
[2019-04-10 11:36] LABS: PHOSPHORUS 3.6 mg/dL (2.7-4.5)
[2019-04-10] MEDS: FLUCONAZOLE 100 mg/ NS 50 ML IV SCH (13:40)
[2019-04-10] MEDS ORDERED: [UNRECOGNIZED DRUG - OTHER] IV SCH ×8 (21:00)
[2019-04-10] MEDS ORDERED: TPN CENTRAL IV SCH ×8 (21:00)
[2019-04-10] MEDS ORDERED: INSULIN REGULAR IV SCH ×8 (21:00)
[2019-04-10] MEDS: MELATONIN 3 MG TABLET PO SCH (21:00)
[2019-04-10] MEDS ORDERED: MVI IV SCH ×8 (21:00)
[2019-04-10] MEDS ORDERED: TRACE ELEMENTS IV SCH ×8 (21:00)
[2019-04-10] MEDS: ENOXAPARIN SODIUM 40 MG/0.4 ML SYRINGE SUBCUT SCH (21:34)
[2019-04-10] MEDS: FAT EMULSIONS 250 ML IV SCH (21:35)
[2019-04-10] MEDS: KCL 20 mEq in D5/0.45NS 1000mL 1,000 ML IV SCH (21:40)
[2019-04-11] VITALS (24 sets, daily range): BP systolic 101–188
[2019-04-11] MEDS: LevALBUTEROL HCL 1.25 MG/0.5 ML *CONC.* VIAL.NEB (XOPENEX CONC.) INH SCH ×2 (00:55→19:50)
[2019-04-11] MEDS: ACETYLCYSTEINE 20% 4 ML VIAL (RT) INH SCH ×2 (00:55→19:50)
[2019-04-11] MEDS: MEROPENEM 1 GM in NS 100 ML IV SCH ×3 (06:22→21:38)
[2019-04-11] MEDS: INSULIN REGULAR, HUMAN 100 UNITS/ML, 10 ML VIAL (humuLIN R) SUBCUT PRN ×3 (06:26→17:31)
[2019-04-11 06:46] LABS: BASOPHILS % (AUTO) 0.1 % (0.0-2.0); HEMATOCRIT 34.8 % (36-48); HEMOGLOBIN 11.1 g/dL (12.0-16.0); LYMPHOCYTES # (AUTO) 1.4 K/uL (1.0-5.5); LYMPHOCYTES % (AUTO) 7.1 % (20.5-51.5); MEAN CORPUSCULAR HEMOGLOBIN 27 pg (27-31); MEAN CORPUSCULAR HGB CONC 32 % (32-36); MEAN CORPUSCULAR VOLUME 84 fL (79.0-98.0); MONOCYTES % (AUTO) 5.2 % (1.7-9.3); NEUTROPHILS # (AUTO) 17.4 K/uL (1.8-7.7); NEUTROPHILS % (AUTO) 87.6 % (40.0-70.0); PLATELET COUNT (AUTO) 257 K/uL (130-430); RED BLOOD CELL COUNT(AUTO) 4.17 MIL/uL (4.2-6.2); RED CELL DISTRIBUTION WIDTH 17.4 % (9.0-15.0); WHITE BLOOD COUNT (AUTO) 19.8 K/uL (4.8-10.8)
[2019-04-11 07:30] LABS: ALANINE AMINOTRANSFERASE 43 U/L (12-78); ALBUMIN 1.9 g/dL (3.4-4.8); ASPARTATE AMINOTRANSFERASE 19 U/L (10-37); CHLORIDE 102 mmol/L (98-107); CREATININE 0.35 mg/dL (0.55-1.30); PHOSPHORUS 2.1 mg/dL (2.7-4.5); POTASSIUM 5.2 mmol/L (3.5-5.1); SODIUM SERUM 132 mmol/L (136-145); TOTAL BILIRUBIN 0.4 mg/dL (0.0-1.0); TRIGLYCERIDES 62 mg/dL (30-150); UREA NITROGEN, BLOOD 11 mg/dL (8-21)
[2019-04-11 07:51] LABS: GLUCOSE 579 mg/dL (70-99)
[2019-04-11 07:52] LABS: ANION GAP < 3 (5-15); CALCIUM 6.6 mg/dL (8.4-11.0); GFR AFRICAN AMERICAN 261 mL/min (>90)
[2019-04-11] MEDS: PANTOPRAZOLE SODIUM 40 MG/VIAL (PROTONIX) IVP SCH (08:34)
[2019-04-11] MEDS: methylPREDNISolone SOD SUCC 40 MG/ML VIAL IVP SCH ×2 (08:34→21:38)
[2019-04-11] MEDS: ASPIRIN 325 MG TABLET PO SCH (08:44)
[2019-04-11] MEDS: CARVEDILOL 25 MG TABLET (COREG) PO SCH ×2 (08:45→21:00)
[2019-04-11] MEDS: DOCUSATE SODIUM 100 MG CAPSULE PO SCH ×2 (08:45→21:00)
[2019-04-11] MEDS: BACLOFEN 10 MG TABLET PO SCH ×2 (08:45→21:00)
[2019-04-11 09:17] LABS: CHLORIDE 101 mmol/L (98-107); CREATININE 0.31 mg/dL (0.55-1.30); GLUCOSE 280 mg/dL (70-99); POTASSIUM 3.1 mmol/L (3.5-5.1); SODIUM SERUM 137 mmol/L (136-145); UREA NITROGEN, BLOOD 12 mg/dL (8-21)
[2019-04-11 09:19] LABS: GFR AFRICAN AMERICAN 301 mL/min (>90)
[2019-04-11 09:21] LABS: ANION GAP < 3 (5-15)
[2019-04-11 09:22] LABS: ALANINE AMINOTRANSFERASE 51 U/L (12-78); ALBUMIN 2.4 g/dL (3.4-4.8); ASPARTATE AMINOTRANSFERASE 19 U/L (10-37); PHOSPHORUS 2.6 mg/dL (2.7-4.5); TOTAL BILIRUBIN 0.5 mg/dL (0.0-1.0)
[2019-04-11] MEDS ORDERED: CALCIUM GLUCONATE 1 GM in NS 100 ML IV ONE (09:30)
[2019-04-11] MEDS ORDERED: NACL 0.9% 1,000 ML IV SCH (10:00)
[2019-04-11] MEDS: KCL 20 mEq in D5/0.45NS 1000mL 1,000 ML IV SCH (10:22)
[2019-04-11] MEDS ORDERED: KCL 20 mEq in 100 mL (PREMIX) 100 ML IV ONE (10:30)
[2019-04-11] MEDS: FLUCONAZOLE 100 mg/ NS 50 ML IV SCH (11:37)
[2019-04-11] MEDS ORDERED: NA PHOS 15 MM in NS 250 ML IV ONE (12:00)
[2019-04-11] MEDS: hydrALAZINE HCL 20 MG/ML VIAL IVP PRN (17:42)
[2019-04-11] MEDS ORDERED: TPN CENTRAL IV SCH ×9 (21:00)
[2019-04-11] MEDS ORDERED: TRACE ELEMENTS IV SCH ×9 (21:00)
[2019-04-11] MEDS: MELATONIN 3 MG TABLET PO SCH (21:00)
[2019-04-11] MEDS ORDERED: INSULIN REGULAR IV SCH ×9 (21:00)
[2019-04-11] MEDS ORDERED: MVI IV SCH ×9 (21:00)
[2019-04-11] MEDS ORDERED: [UNRECOGNIZED DRUG - OTHER] IV SCH ×9 (21:00)
[2019-04-11] MEDS: FAT EMULSIONS 250 ML IV SCH (21:32)
[2019-04-11] MEDS: ENOXAPARIN SODIUM 40 MG/0.4 ML SYRINGE SUBCUT SCH (21:35)
[2019-04-12] VITALS (17 sets, daily range): BP systolic 102–171
[2019-04-12] MEDS: INSULIN REGULAR, HUMAN 100 UNITS/ML, 10 ML VIAL (humuLIN R) SUBCUT PRN ×3 (00:05→11:27)
[2019-04-12] MEDS: LevALBUTEROL HCL 1.25 MG/0.5 ML *CONC.* VIAL.NEB (XOPENEX CONC.) INH SCH ×3 (00:50→13:35)
[2019-04-12] MEDS: ACETYLCYSTEINE 20% 4 ML VIAL (RT) INH SCH ×3 (00:50→13:36)
[2019-04-12] MEDS: hydrALAZINE HCL 20 MG/ML VIAL IVP PRN (03:11)
[2019-04-12] MEDS: LORazepam 2 MG/ML VIAL IVP PRN ×2 (05:03→15:45)
[2019-04-12] MEDS: MEROPENEM 1 GM in NS 100 ML IV SCH ×2 (06:03→13:08)
[2019-04-12 06:13] LABS: BASOPHILS # (AUTO) 0.1 K/uL (0.0-0.2); BASOPHILS % (AUTO) 0.5 % (0.0-2.0); EOSINOPHILS % (AUTO) 0.1 % (0.0-4.0); HEMATOCRIT 41.8 % (36-48); HEMOGLOBIN 13.5 g/dL (12.0-16.0); LYMPHOCYTES # (AUTO) 1.7 K/uL (1.0-5.5); LYMPHOCYTES % (AUTO) 6.4 % (20.5-51.5); MEAN CORPUSCULAR HEMOGLOBIN 27 pg (27-31); MEAN CORPUSCULAR HGB CONC 32 % (32-36); MEAN CORPUSCULAR VOLUME 83 fL (79.0-98.0); MONOCYTES # (AUTO) 1.2 K/uL (0.0-1.0); MONOCYTES % (AUTO) 4.5 % (1.7-9.3); NEUTROPHILS # (AUTO) 23.4 K/uL (1.8-7.7); NEUTROPHILS % (AUTO) 88.5 % (40.0-70.0); PLATELET COUNT (AUTO) 352 K/uL (130-430); RED BLOOD CELL COUNT(AUTO) 5.04 MIL/uL (4.2-6.2); RED CELL DISTRIBUTION WIDTH 17.1 % (9.0-15.0); WHITE BLOOD COUNT (AUTO) 26.4 K/uL (4.8-10.8)
[2019-04-12 06:35] LABS: ALANINE AMINOTRANSFERASE 48 U/L (12-78); ALBUMIN 2.4 g/dL (3.4-4.8); ANION GAP 3 (5-15); ASPARTATE AMINOTRANSFERASE 19 U/L (10-37); CALCIUM 7.9 mg/dL (8.4-11.0); CHLORIDE 99 mmol/L (98-107); GLUCOSE 276 mg/dL (70-99); PHOSPHORUS 2.7 mg/dL (2.7-4.5); POTASSIUM 3.9 mmol/L (3.5-5.1); SODIUM SERUM 136 mmol/L (136-145); TOTAL BILIRUBIN 0.5 mg/dL (0.0-1.0); UREA NITROGEN, BLOOD 12 mg/dL (8-21)
[2019-04-12 06:46] LABS: CREATININE < 0.20 mg/dL (0.55-1.30); GFR AFRICAN AMERICAN 499 mL/min (>90)
[2019-04-12] MEDS: PANTOPRAZOLE SODIUM 40 MG/VIAL (PROTONIX) IVP SCH (08:10)
[2019-04-12] MEDS: methylPREDNISolone SOD SUCC 40 MG/ML VIAL IVP SCH (08:11)
[2019-04-12] MEDS: DOCUSATE SODIUM 100 MG CAPSULE PO SCH (08:11)
[2019-04-12] MEDS: ASPIRIN 325 MG TABLET PO SCH (08:11)
[2019-04-12] MEDS: BACLOFEN 10 MG TABLET PO SCH (08:11)
[2019-04-12] MEDS: CARVEDILOL 25 MG TABLET (COREG) PO SCH (08:12)
[2019-04-12] MEDS: KCL 20 mEq in D5/0.45NS 1000mL 1,000 ML IV SCH (11:28)
[2019-04-12] MEDS: FLUCONAZOLE 100 mg/ NS 50 ML IV SCH (11:30)
[2019-04-12] MEDS ORDERED: TRACE ELEMENTS IV SCH ×11 (21:00)
[2019-04-12] MEDS ORDERED: [UNRECOGNIZED DRUG - OTHER] IV SCH ×11 (21:00)
[2019-04-12] MEDS ORDERED: TPN CENTRAL IV SCH ×11 (21:00)
[2019-04-12] MEDS ORDERED: MVI IV SCH ×11 (21:00)
[2019-04-12] MEDS ORDERED: INSULIN REGULAR IV SCH ×11 (21:00)
== END 2019-04-12 16:05 | disposition hospice, inpatient (51) | DRG 177 ==
LOC: SED 17:51 → STU 21:41 → SIC 04-01 07:21
PROVIDERS: ADMIT Family Medicine; ATTEND Family Medicine
PROC: 5A09357 Assistance with Respiratory Ventilation, Less than 24 Consecutive Hours, Continuous Positive Airway Pressure (ICD-10-PCS; principal; 2019-04-01)
PROC: 02HV33Z Insertion of Infusion Device into Superior Vena Cava, Percutaneous Approach (ICD-10-PCS; 2019-04-01)
PROC: B548ZZA Ultrasonography of Superior Vena Cava, Guidance (ICD-10-PCS; 2019-04-01)
PROC: 5A09357 Assistance with Respiratory Ventilation, Less than 24 Consecutive Hours, Continuous Positive Airway Pressure (ICD-10-PCS; 2019-04-02)
PROC: 5A09357 Assistance with Respiratory Ventilation, Less than 24 Consecutive Hours, Continuous Positive Airway Pressure (ICD-10-PCS; 2019-04-03)
PROC: 5A09357 Assistance with Respiratory Ventilation, Less than 24 Consecutive Hours, Continuous Positive Airway Pressure (ICD-10-PCS; 2019-04-04)
PROC: 5A09357 Assistance with Respiratory Ventilation, Less than 24 Consecutive Hours, Continuous Positive Airway Pressure (ICD-10-PCS; 2019-04-05)
PROC: 5A09357 Assistance with Respiratory Ventilation, Less than 24 Consecutive Hours, Continuous Positive Airway Pressure (ICD-10-PCS; 2019-04-06)
PROC: 5A09457 Assistance with Respiratory Ventilation, 24-96 Consecutive Hours, Continuous Positive Airway Pressure (ICD-10-PCS; 2019-04-07)
PROC: 5A09357 Assistance with Respiratory Ventilation, Less than 24 Consecutive Hours, Continuous Positive Airway Pressure (ICD-10-PCS; 2019-04-08)
PROC: 5A09457 Assistance with Respiratory Ventilation, 24-96 Consecutive Hours, Continuous Positive Airway Pressure (ICD-10-PCS; 2019-04-09)
PROC: 5A09357 Assistance with Respiratory Ventilation, Less than 24 Consecutive Hours, Continuous Positive Airway Pressure (ICD-10-PCS; 2019-04-11)
DX: J69.0 Pneumonitis due to inhalation of food and vomit (principal); J96.01 Acute respiratory failure with hypoxia; E87.1 Hypo-osmolality and hyponatremia; G12.21 Amyotrophic lateral sclerosis; G82.20 Paraplegia, unspecified; Z68.41 Body mass index [BMI] 40.0-44.9, adult; I10 Essential (primary) hypertension; E66.9 Obesity, unspecified; J44.9 Chronic obstructive pulmonary disease, unspecified; K21.9 Gastro-esophageal reflux disease without esophagitis; J15.9 Unspecified bacterial pneumonia; Y95 Nosocomial condition; Z88.1 Allergy status to other antibiotic agents; Z88.8 Allergy status to other drugs, medicaments and biological substances; Z79.82 Long term (current) use of aspirin; Z79.899 Other long term (current) drug therapy
CPT/HCPCS: 36415; 36600; 71045; 80048; 80053; 82803-TC; 82962; 83605; 83735-TC; 84100-TC; 84134; 84478-TC; 84484; 85025; 85610-TC; 85651-TC; 85730-TC; 86710; 86738; 87040-TC; 87081; 87449; 94640; 94660; 94760; 96365; 96375; 99285; C1751; C9113; G0378; J0360; J0456; J0610; J0696; J1030; J1450; J1650; J1815; J1956; J2020; J2060; J2185; J2543; J2930; J3475; J3480; J7050; J7131; J7608; J7612; J7620